=== PATIENT | male | born 1945 | race Caucasian/White ===

== ENCOUNTER → 2020-10-07 15:21 | Outpatient (BNVA) | payer MEDICARE, SELFPAY | PROVIDERS: Visit Provider Urology | DX: Z76.89 Persons encountering health services in other specified circumstances (principal) | CPT/HCPCS: Q3014 ==

== ENCOUNTER → 2021-02-14 08:45 | Outpatient (BNVA) | payer MEDICARE, SELFPAY | PROVIDERS: PCP Family Medicine; Visit Provider Urology | DX: C61 Malignant neoplasm of prostate (principal) | CPT/HCPCS: Q3014 ==

== ENCOUNTER → 2021-08-18 09:02 | Outpatient (BNVA) | payer MEDICARE, SELFPAY | PROVIDERS: PCP Family Medicine; Visit Provider Urology | DX: C61 Malignant neoplasm of prostate (principal) | CPT/HCPCS: Q3014 ==

== ENCOUNTER → 2022-03-20 11:05 | Outpatient (BNVA) | payer MEDICARE, SELFPAY | PROVIDERS: PCP Family Medicine; Visit Provider Urology | DX: C61 Malignant neoplasm of prostate (principal) | CPT/HCPCS: 99212 ==

== ENCOUNTER → 2022-09-19 10:58 | Outpatient (BNVA) | payer MEDICARE, SELFPAY | PROVIDERS: PCP Family Medicine; Visit Provider Urology | DX: C61 Malignant neoplasm of prostate (principal); N30.40 Irradiation cystitis without hematuria; N40.1 Benign prostatic hyperplasia with lower urinary tract symptoms; R33.8 Other retention of urine | CPT/HCPCS: 99212 ==

== ENCOUNTER → 2023-04-23 08:27 | Outpatient (BNVA) | payer MEDICARE, SELFPAY | PROVIDERS: PCP Family Medicine; Visit Provider Urology | DX: R97.21 Rising PSA following treatment for malignant neoplasm of prostate (principal); C61 Malignant neoplasm of prostate | CPT/HCPCS: Q3014 ==

== ENCOUNTER 2023-07-12 14:22 | Outpatient (AMB) | payer MEDICARE, SELFPAY ==
--- NOTE | 2023-07-12 14:23 | MHC.OFFVIS ---
Intake Intake Visit Reasons: PET CT ([facility] 06/21) follow up Intake Note: Patient is present for Telephone pet ct Follow up Urology Med: Finasteride, Antibiotic Allergy: None Blood Thinner: none Pharmacy: [facility] Allergies typhoid vaccine Allergy (Unknown, Verified 04/23/23 08:30) Unknown Medication List - Last Reconciled 07/12/23 by Demetrius Thomas MD amlodipine 2.5 mg PO DAILY amlodipine 5 mg PO DAILY finasteride 5 mg PO DAILY 90 days fluticasone furoate-vilanterol 100-25 mcg/dose (Breo Ellipta) 1 ea inhalation DAILY metoprolol succinate ER 100 mg PO DAILY rosuvastatin 20 mg PO DAILY umeclidinium-vilanterol 62.5-25 mcg/actuation (Anoro Ellipta) 1 ea inhalation DAILY HPI HPI Comments History of Present Illness Details Sabas is a very pleasant male. He is a patient of Dr. Small. Here for the following urologic conditions - prostate cancer - radiation cystitis Telemedicine Evaluation 15 min Consultation [employer] Stephan Video attempted PSA slow rise PET-CT - mild enhancement of right prostate apex Discussed results Continue to follow May be candidate for targeted seed placement if PSA continues to rise Had been on finasteride since 2016 with adequate control PSA 05/10 2.3, 11/09 1.4, 05/11 1.0, 02/12 <0.1, 08/15 <0.1, 03/16 <0.1, 09/15 0.2, 03/17 0.7 - slight rise in PSA in 2016 managed with finasteride Prostate cancer: Favorable intermediate. Initial treatment radiation with short-term hormones 2014 Doing well. Good control urination. No leakage. Minimal urge. - Weak erections. Prostate cancer was diagnosed 10/2014. Diagnosis was reached by needle biopsy, for elevated PSA, PSA at diagnosis 7.7. The [place] grade is 3+4 = 7. TNM Classification of Malignant Tumours (TNM) T1c. The D'Renu (NCCN) risk category is Intermediate Risk (PSA 10-20, Gl 7, T2). Initial therapy included Primary treatment, External beam radiation with short term hormonal ablation - Dr Sanchez at [facility] Associated conditions erectile dysfunction Yes Erectile ALICJA Score 16 Therapeutic plan: PET-CT for rising PSA [facility] Medical History Coronary artery disease GERD (gastroesophageal reflux disease) Gout HTN (hypertension) Hyperlipidemia Surgical History History of coronary artery stent placement Family History Father Diabetes CVD (cardiovascular disease) Prostate cancer Mother Diabetes Cancer CVD (cardiovascular disease) Review of Systems Const All systems reviewed & are unremarkable except as noted in HPI and below Reports no additional complaints Resp Reports no additional complaints GI Reports no additional complaints Reports as per HPI Musc Reports no additional complaints Physical Exam Telemedicine evaluation Appropriate responses Regular breathing rate and rhythm HEENT Head: Yes normal to inspection Ears: hearing grossly normal bilaterally Eyes General: appearance normal, both eyes and all related structures Neck Neck: Yes normal visual inspection Chest Chest palpation & inspection: normal inspection of the chest Resp Effort & Inspection: normal respiratory effort and able to speak in complete sentences Assessment & Plan Assessment & Plan (1) Prostate cancer: Comment: Favorable intermediate external beam radiation 2014 Code(s): C61 - Malignant neoplasm of prostate (2) Rising PSA following treatment for malignant neoplasm of prostate: Code(s): R97.21 - Rising PSA following treatment for malignant neoplasm of prostate Plan Three month follow-up with PSA Orders: Orders Prostate Specific Antigen 3 Months C61 - Malignant neoplasm of prostate Patient Instructions: Imaging studies, laboratory and physical exam results were discussed and reviewed in detail. No major barriers to patient understanding were identified. An opportunity to ask questions regarding the treatment plan was provided. All questions were answered. The patient expressed understanding and agreement with the above treatment plan. The patient is aware they should contact our office by phone for worsening of their current condition or the appearance of new urologic symptoms. Compliance is encouraged with any medications and followup testing that is ordered. It is a privilege to participate in the urologic care of your patient. If you have any questions or concerns regarding treatment for the above conditions, or other urologic issues, please do not hesitate to contact me. The office telephone contact is [phone]. This note is constructed using voice recognition software. While every effort has been made to ensure accuracy beer still runner compounder errors may have been included. Yours sincerely, Dr Demetrius Thomas MD, [facility] - Urology Providers of Expert, Compassionate Care for the Genitourinary System Telehealth Telehealth Location of provider rendering services: practice address Location of patient: address on file Patient Identification confirmed using: Name, : Yes Telehealth method: video Patient verbally consented to treatment: Yes Patient verbally consented to billing insurance company: Yes Patient informed of any privacy concerns related to visit: Yes Coding Level of Care Code Tele Est Pt Level 3 (61297) Diagnoses Prostate cancer C61 Rising PSA following treatment for malignant neoplasm of prostate R97.21
== END 2023-07-12 16:29 | disposition home or self-care (01) ==
LOC: HO.HUSH 14:22
PROVIDERS: PCP Family Medicine; Visit Provider Urology
DX: C61 Malignant neoplasm of prostate (principal); R97.21 Rising PSA following treatment for malignant neoplasm of prostate
CPT/HCPCS: 99213

== ENCOUNTER 2023-10-16 10:59 | Outpatient (REF) | payer MEDICARE, SELFPAY ==
[2023-10-16 12:44] LABS: Blood Urea Nitrogen 13 mg/dL (9-16); Estimated Glomerular Filt Rate > 60
[2023-10-16 13:01] LABS: Prostate Specific Antigen 5.95 ng/mL (<0.05-4.0)
== END 2023-10-16 11:00 | disposition home or self-care (01) ==
LOC: HO.LAB 10:59
PROVIDERS: PCP Family Medicine; Visit Provider Urology
DX: Z12.5 Encounter for screening for malignant neoplasm of prostate (principal); C61 Malignant neoplasm of prostate
CPT/HCPCS: 36415; 82565; 84153; 84520

== ENCOUNTER 2023-10-22 15:24 | Outpatient (AMB) | payer MEDICARE, SELFPAY ==
--- NOTE | 2023-10-22 15:26 | MHC.OFFVIS ---
Intake Intake Visit Reasons: 3M PSA(set) Allergies typhoid vaccine Allergy (Unknown, Verified 04/23/23 08:30) Unknown HPI HPI Comments History of Present Illness Details Sabas is a very pleasant male. He is a patient of Dr. Small. Here for the following urologic conditions - prostate cancer - radiation cystitis Telemedicine Evaluation 15 min Consultation [employer] Stephan Video attempted PSA slow rise Discussed results Continue to follow May be candidate for targeted seed placement or cryotherapy if PSA continues to rise Had been on finasteride since 2016 with adequate control PSA 05/10 2.3, 11/09 1.4, 05/11 1.0, 02/12 <0.1, 08/15 <0.1, 03/16 <0.1, 09/15 0.2, 04/16 0.7, 10/17 6.0 - slight rise in PSA in 2016 managed with finasteride Prostate cancer: Favorable intermediate. Initial treatment radiation with short-term hormones 07/17 PET-CT - mild enhancement of right prostate apical apex Doing well. Good control urination. No leakage. Minimal urge. - Weak erections. Prostate cancer was diagnosed 10/2014. Diagnosis was reached by needle biopsy, for elevated PSA, PSA at diagnosis 7.7. The [place] grade is 3+4 = 7. TNM Classification of Malignant Tumours (TNM) T1c. The D'Renu (NCCN) risk category is Intermediate Risk (PSA 10-20, Gl 7, T2). Initial therapy included Primary treatment, External beam radiation with short term hormonal ablation - Dr Sanchez at [facility] Associated conditions erectile dysfunction Yes Erectile ALICJA Score 16 Therapeutic plan: 4m f/u [facility] Medical History Coronary artery disease GERD (gastroesophageal reflux disease) Gout HTN (hypertension) Hyperlipidemia Surgical History History of coronary artery stent placement Family History Father Diabetes CVD (cardiovascular disease) Prostate cancer Mother Diabetes Cancer CVD (cardiovascular disease) Review of Systems Const All systems reviewed & are unremarkable except as noted in HPI and below Reports no additional complaints Resp Reports no additional complaints GI Reports no additional complaints Reports as per HPI Musc Reports no additional complaints Physical Exam Telemedicine evaluation Appropriate responses Regular breathing rate and rhythm HEENT Head: Yes normal to inspection Ears: hearing grossly normal bilaterally Eyes General: appearance normal, both eyes and all related structures Neck Neck: Yes normal visual inspection Chest Chest palpation & inspection: normal inspection of the chest Resp Effort & Inspection: normal respiratory effort and able to speak in complete sentences Assessment & Plan Assessment & Plan (1) Prostate cancer: Comment: Favorable intermediate external beam radiation 2014 Code(s): C61 - Malignant neoplasm of prostate (2) Rising PSA following treatment for malignant neoplasm of prostate: Code(s): R97.21 - Rising PSA following treatment for malignant neoplasm of prostate Plan Plan for GnRH Patient Instructions: Imaging studies, laboratory and physical exam results were discussed and reviewed in detail. No major barriers to patient understanding were identified. An opportunity to ask questions regarding the treatment plan was provided. All questions were answered. The patient expressed understanding and agreement with the above treatment plan. The patient is aware they should contact our office by phone for worsening of their current condition or the appearance of new urologic symptoms. Compliance is encouraged with any medications and followup testing that is ordered. It is a privilege to participate in the urologic care of your patient. If you have any questions or concerns regarding treatment for the above conditions, or other urologic issues, please do not hesitate to contact me. The office telephone contact is [phone]. This note is constructed using voice recognition software. While every effort has been made to ensure accuracy cement storage worker errors may have been included. Yours sincerely, Dr Demetrius Thomas MD, [facility] - Urology Providers of Expert, Compassionate Care for the Genitourinary System Telehealth Telehealth Location of provider rendering services: practice address Location of patient: address on file Patient Identification confirmed using: Name, : Yes Telehealth method: video Patient verbally consented to treatment: Yes Patient verbally consented to billing insurance company: Yes Patient informed of any privacy concerns related to visit: Yes Coding Level of Care Code Tele Est Pt Level 4 (80514) Diagnoses Prostate cancer C61 Rising PSA following treatment for malignant neoplasm of prostate R97.21
== END 2023-10-22 16:30 | disposition home or self-care (01) ==
LOC: HO.HUSH 15:24
PROVIDERS: PCP Family Medicine; Visit Provider Urology
DX: C61 Malignant neoplasm of prostate (principal); R97.21 Rising PSA following treatment for malignant neoplasm of prostate
CPT/HCPCS: 99214

== ENCOUNTER → 2023-10-22 15:24 | Outpatient (BNVA) | payer MEDICARE, SELFPAY | PROVIDERS: PCP Family Medicine; Visit Provider Urology ==

== ENCOUNTER 2023-11-08 08:53 | Outpatient (AMB) | payer MEDICARE, SELFPAY ==
--- NOTE | 2023-11-08 08:59 | AM.OFFVISNUR ---
Intake Intake Visit Reasons: GnRH(PA Set) Allergies typhoid vaccine Allergy (Unknown, Verified 04/23/23 08:30) Unknown Office Meds Eligard (6 month) 45 mg (6 month) subcutaneous syringe Performing Provider: Demetrius Thomas MD Performing Location[facility] [place] [facility] Administered by: Ekaterina Mcgowan RN on 11/08/23 08:59 Dose Route Admin Location Dispensed Lot Number Expiration Date [facility] Bank Operations Officer 45 mg subcut left arm 45 mg [id number] 11/25/24 71098-201-34 [place]. Coding Assessment & Plan Assessment & Plan Orders: Orders AMB Leuprolide Injection - Practice Supplied Today C61 - Malignant neoplasm of prostate
== END 2023-11-08 09:10 | disposition home or self-care (01) ==
PROVIDERS: PCP Family Medicine; Visit Provider Urology
DX: C61 Malignant neoplasm of prostate (principal)

== ENCOUNTER → 2023-11-08 08:53 | Outpatient (BNVA) | payer MEDICARE, SELFPAY | PROVIDERS: PCP Family Medicine; Visit Provider Urology | DX: C61 Malignant neoplasm of prostate (principal) | CPT/HCPCS: 96402; J9217 ==

== ENCOUNTER 2024-01-30 09:52 | Outpatient (AMB) | payer MEDICARE, SELFPAY ==
--- NOTE | 2024-01-30 10:12 | MHC.OFFVIS ---
Intake Intake Visit Reasons: psa/testosterone(set)VM to confirm Intake Note: Patient presents today for a follow-up on labs Meds- Finasteride Allergies to Antibiotic- No Known Allergies Blood Thinner- None Skid Road Worker Required: No Accompanied by: Allergies typhoid vaccine Allergy (Unknown, Verified 01/30/24 10:18) Unknown HPI HPI Comments History of Present Illness Details Sabas is a very pleasant male. He is a patient of Dr. Small. Here for the following urologic conditions - prostate cancer - biochemical recurrence - radiation cystitis Good response to GnRH PSA fallen 01/18 0.5 Will continue for total of 3 shots Discussed potential for targeted cryotherapy Would rely on prostate MRI GnRH 11/08/23 PSA 05/10 2.3, 11/09 1.4, 05/11 1.0, 02/12 <0.1, 08/15 <0.1, 03/16 <0.1, 09/15 0.2, 04/16 0.7, 10/17 6.0 Prostate cancer: Favorable intermediate. Initial treatment radiation with short-term hormones 07/17 PET-CT - mild enhancement of right prostate apical apex Doing well. Good control urination. No leakage. Minimal urge. - Weak erections. Prostate cancer was diagnosed 10/2014. Diagnosis was reached by needle biopsy, for elevated PSA, PSA at diagnosis 7.7. The [place] grade is 3+4 = 7. TNM Classification of Malignant Tumours (TNM) T1c. The D'Rneu (NCCN) risk category is Intermediate Risk (PSA 10-20, Gl 7, T2). Initial therapy included Primary treatment, External beam radiation with short term hormonal ablation - Dr Sanchez at [facility] Associated conditions erectile dysfunction Yes Erectile ALICJA Score 16 PFSH Medical History Gout HTN (hypertension) Hyperlipidemia GERD (gastroesophageal reflux disease) Coronary artery disease Surgical History History of coronary artery stent placement Family History Father Diabetes CVD (cardiovascular disease) Prostate cancer Mother Diabetes Cancer CVD (cardiovascular disease) Assessment & Plan Assessment & Plan (1) Prostate cancer: Comment: Favorable intermediate external beam radiation 2014 Code(s): C61 - Malignant neoplasm of prostate (2) Rising PSA following treatment for malignant neoplasm of prostate: Code(s): R97.21 - Rising PSA following treatment for malignant neoplasm of prostate Plan Three-month follow-up labs and GnRH Orders: Orders Prostate Specific Antigen 3 Months R97.21 - Rising PSA following treatment for malignant neoplasm of prostate Patient Instructions: Imaging studies, laboratory and physical exam results were discussed and reviewed in detail. No major barriers to patient understanding were identified. An opportunity to ask questions regarding the treatment plan was provided. All questions were answered. The patient expressed understanding and agreement with the above treatment plan. The patient is aware they should contact our office by phone for worsening of their current condition or the appearance of new urologic symptoms. Compliance is encouraged with any medications and followup testing that is ordered. It is a privilege to participate in the urologic care of your patient. If you have any questions or concerns regarding treatment for the above conditions, or other urologic issues, please do not hesitate to contact me. The office telephone contact is [phone]. This note is constructed using voice recognition software. While every effort has been made to ensure accuracy tool procurement coordinator errors may have been included. Yours sincerely, Dr Demetrius Thomas MD, [facility] - Urology Providers of Expert, Compassionate Care for the Genitourinary System Coding Level of Care Code Est Pt Level 3 (44080) Diagnoses Prostate cancer C61 Rising PSA following treatment for malignant neoplasm of prostate R97.21
== END 2024-01-30 11:12 | disposition home or self-care (01) ==
PROVIDERS: PCP Family Medicine; Visit Provider Urology
DX: C61 Malignant neoplasm of prostate (principal); R97.21 Rising PSA following treatment for malignant neoplasm of prostate
CPT/HCPCS: 99213

== ENCOUNTER → 2024-01-30 09:52 | Outpatient (BNVA) | payer MEDICARE, SELFPAY | PROVIDERS: PCP Family Medicine; Visit Provider Urology | DX: C61 Malignant neoplasm of prostate (principal); R97.21 Rising PSA following treatment for malignant neoplasm of prostate | CPT/HCPCS: 99212 ==

== ENCOUNTER 2024-05-26 09:11 | Outpatient (AMB) | payer MEDICARE, SELFPAY ==
--- NOTE | 2024-05-26 09:45 | A.OFFVIS_ITS ---
Intake Visit Reasons: GnRH/PSA/Testo(set) Intake Note: Patient is present for [facility]/PSA/Testo Urology Medication:finasteride Antibiotic Allergy:none Blood Thinner:none Political Scientist Required: No Allergies typhoid vaccine Allergy (Unknown, Verified 05/26/24 09:47) Unknown HPI Comments Details: Sabas is a very pleasant male. He is a patient of Dr. Small. Here for the following urologic conditions - prostate cancer - biochemical recurrence - radiation cystitis PSA stable Continue GnRH for total of 3 injections 05/18 0.9 GnRH 11/08/23, 06/17 PSA 05/10 2.3, 11/09 1.4, 05/11 1.0, 02/12 <0.1, 08/15 <0.1, 03/16 <0.1, 09/15 0.2, 04/16 0.7, 10/17 6.0 Prostate cancer: Favorable intermediate. Initial treatment radiation with short-term hormones 07/17 PET-CT - mild enhancement of right prostate apical apex Doing well. Good control urination. No leakage. Minimal urge. - Weak erections. Prostate cancer was diagnosed 10/2014. Diagnosis was reached by needle biopsy, for elevated PSA, PSA at diagnosis 7.7. The [place] grade is 3+4 = 7. TNM Classification of Malignant Tumours (TNM) T1c. The D'Renu (NCCN) risk category is Intermediate Risk (PSA 10-20, Gl 7, T2). Initial therapy included Primary treatment, External beam radiation with short term hormonal ablation - Dr Sanchez at [facility] Associated conditions erectile dysfunction Yes Erectile ALICJA Score 16 PFSH Medical History Gout HTN (hypertension) Hyperlipidemia GERD (gastroesophageal reflux disease) Coronary artery disease Surgical History History of coronary artery stent placement Family History Father Diabetes CVD (cardiovascular disease) Prostate cancer Mother Diabetes Cancer CVD (cardiovascular disease) Review of Systems Const Denies chills and Denies fever(s) Card Reports no additional complaints and Denies syncope Resp Denies cough GI Denies abdominal pain and Denies heartburn Reports as per HPI and Denies change in libido Neuro Denies syncope Psych Denies change in libido Endo Denies change in libido Physical Exam Const General: cooperative, healthy appearing, comfortable and no acute distress Orientation/consciousness: patient oriented x3 HEENT Face and sinus: Yes normal facial exam Mouth: moist mucous membranes Neck Neck: Yes normal visual inspection, Yes full ROM and Yes trachea midline Chest Chest palpation & inspection: normal inspection of the chest Resp Effort & Inspection: normal respiratory effort, able to speak in complete sentences and no respiratory distress GI Inspection: Yes normal to inspection Back/Spine/Pelvis Cervical Spine: normal cervical lordosis Thoracic/Lumbar Spine: thoracic and lumbar spine normal to inspection Skin General skin exam: no rashes or lesions noted Neuro General: patient oriented x3, gait normal, tone normal and moves all extremities Extrem General: Yes normal to inspection and Yes capillary refill normal Office Meds Eligard (6 month) 45 mg (6 month) subcutaneous syringe Performing Provider: Demetrius Thomas MD [place] [facility] [place] [facility] Administered by: Lam Smith LPN on 05/26/24 10:34 Dose Route Admin Location Dispensed Lot Number Expiration Date [facility] [employer] Feed Mixer 45 mg subcut right arm 45 mg [id number] 05/25/25 51732-023-95 [employer]. Assessment & Plan Assessment & Plan (1) Prostate cancer: Comment: Favorable intermediate external beam radiation 2014 Code(s): C61 - Malignant neoplasm of prostate Category: Medical Plan Three-month follow-up lab work Orders: Orders Prostate Specific Antigen 3 Months R97.21 - Rising PSA following treatment for malignant neoplasm of prostate Testosterone, Total 3 Months R97.21 - Rising PSA following treatment for malignant neoplasm of prostate AMB Leuprolide Injection - Practice Supplied 05/26/24 C61 - Malignant neoplasm of prostate, R97.21 - Rising PSA following treatment for malignant neoplasm of prostate Patient Instructions: Imaging studies, laboratory and physical exam results were discussed and reviewed in detail. No major barriers to patient understanding were identified. An opportunity to ask questions regarding the treatment plan was provided. All questions were answered. The patient expressed understanding and agreement with the above treatment plan. The patient is aware they should contact our office by phone for worsening of their current condition or the appearance of new urologic symptoms. Compliance is encouraged with any medications and followup testing that is ordered. It is a privilege to participate in the urologic care of your patient. If you have any questions or concerns regarding treatment for the above conditions, or other urologic issues, please do not hesitate to contact me. The office telephone contact is [phone]. This note is constructed using voice recognition software. While every effort has been made to ensure accuracy sales department supervisor errors may have been included. Yours sincerely, Dr Demetrius Thomas MD, [facility] - Urology Providers of Expert, Compassionate Care for the Genitourinary System Coding Level of Care Code Est Pt Level 3 (61572) Diagnoses Prostate cancer C61
== END 2024-05-26 10:34 | disposition home or self-care (01) ==
PROVIDERS: PCP Family Medicine; Visit Provider Urology
DX: C61 Malignant neoplasm of prostate (principal)
CPT/HCPCS: 99499

== ENCOUNTER → 2024-05-26 09:11 | Outpatient (BNVA) | payer MEDICARE, SELFPAY | PROVIDERS: PCP Family Medicine; Visit Provider Urology | DX: C61 Malignant neoplasm of prostate (principal); N52.9 Male erectile dysfunction, unspecified; R97.21 Rising PSA following treatment for malignant neoplasm of prostate | CPT/HCPCS: 96402; J9217 ==

== ENCOUNTER 2024-08-21 10:53 | Outpatient (REF) | payer MEDICARE, SELFPAY ==
[2024-08-21 12:11] LABS: PSA,Total (Free>4and<10) 0.18 ng/mL (0.00-4.00); Prostate Specific Antigen 0.17 ng/mL (<0.05-4.0)
[2024-08-27 17:14] LABS: Testosterone, Free 0.4 pg/mL (30.0-135.0); Testosterone, Total 4 ng/dL (250-1100)
== END 2024-08-21 10:54 | disposition home or self-care (01) ==
LOC: HO.LAB 10:53
PROVIDERS: PCP Family Medicine; Visit Provider Urology
DX: C61 Malignant neoplasm of prostate (principal); R97.21 Rising PSA following treatment for malignant neoplasm of prostate; Z12.5 Encounter for screening for malignant neoplasm of prostate
CPT/HCPCS: 36415; 84153; 84402; 84403

== ENCOUNTER 2024-08-27 09:05 | Outpatient (AMB) | payer MEDICARE, SELFPAY ==
--- NOTE | 2024-08-27 09:02 | A.OFFVIS_ITS ---
Intake Visit Reasons: 3M PSA/Testo (Testo Pending) Intake Note: Patient is present for 3M F/U PSA/Testo Urology Medication:NONE Antibiotic Allergy:none Blood Thinner:none Medical Insurance Verifier Required: No Allergies typhoid vaccine Allergy (Unknown, Verified 08/27/24 09:03) Unknown HPI Comments Details: Sabas is a very pleasant male. He is a patient of Dr. Small. Here for the following urologic conditions - prostate cancer - biochemical recurrence - radiation cystitis Telemedicine Evaluation 15 min Consultation Dox[employer] Stephan Video PSA is well controlled Minimal issues with urination No hot flashes Has 1 more GnRH to complete sequence of 18 months of suppression. 09/17 0.2 05/18 0.9 GnRH 11/08/23, 06/17 PSA 05/10 2.3, 11/09 1.4, 05/11 1.0, 02/12 <0.1, 08/15 <0.1, 03/16 <0.1, 09/15 0.2, 04/16 0.7, 10/17 6.0 Prostate cancer: Favorable intermediate. Initial treatment radiation with short-term hormones 07/17 PET-CT - mild enhancement of right prostate apical apex Doing well. Good control urination. No leakage. Minimal urge. - Weak erections. Prostate cancer was diagnosed 10/2014. Diagnosis was reached by needle biopsy, for elevated PSA, PSA at diagnosis 7.7. The Kurt grade is 3+4 = 7. TNM Classification of Malignant Tumours (TNM) T1c. The D'Renu (NCCN) risk category is Intermediate Risk (PSA 10-20, Gl 7, T2). Initial therapy included Primary treatment, External beam radiation with short term hormonal ablation - Dr Sanchez at [facility] Associated conditions erectile dysfunction Yes Erectile ALICJA Score 16 PFSH Medical History Gout HTN (hypertension) Hyperlipidemia GERD (gastroesophageal reflux disease) Coronary artery disease Surgical History History of coronary artery stent placement Family History Father Diabetes CVD (cardiovascular disease) Prostate cancer Mother Diabetes Cancer CVD (cardiovascular disease) Review of Systems Const All systems reviewed & are unremarkable except as noted in HPI and below Denies chills and Denies fever(s) Card Reports no additional complaints and Denies syncope Resp Denies cough GI Denies abdominal pain and Denies heartburn Reports as per HPI and Denies change in libido Musc Reports no additional complaints Neuro Denies syncope Psych Denies change in libido Endo Denies change in libido Physical Exam Telemedicine evaluation Appropriate responses Regular breathing rate and rhythm Const General: cooperative, healthy appearing, comfortable and no acute distress Orientation/consciousness: patient oriented x3 HEENT Head: Yes normal to inspection Ears: hearing grossly normal bilaterally Face and sinus: Yes normal facial exam Mouth: moist mucous membranes Eyes General: appearance normal, both eyes and all related structures Neck Neck: Yes normal visual inspection, Yes full ROM and Yes trachea midline Chest Chest palpation & inspection: normal inspection of the chest Resp Effort & Inspection: normal respiratory effort, able to speak in complete sentences and no respiratory distress GI Inspection: Yes normal to inspection Back/Spine/Pelvis Cervical Spine: normal cervical lordosis Thoracic/Lumbar Spine: thoracic and lumbar spine normal to inspection Skin General skin exam: no rashes or lesions noted Neuro General: patient oriented x3, gait normal, tone normal and moves all extremities Extrem General: Yes normal to inspection and Yes capillary refill normal Telehealth Telehealth Location of provider rendering services: practice address Location of patient: address on file Patient Identification confirmed using: Name, : Yes Telehealth method: voice only Patient verbally consented to treatment: Yes Patient verbally consented to billing insurance company: Yes Patient informed of any privacy concerns related to visit: Yes Assessment & Plan Assessment & Plan (1) Prostate cancer: Comment: Favorable intermediate external beam radiation 2014 Code(s): C61 - Malignant neoplasm of prostate Category: Medical (2) Rising PSA following treatment for malignant neoplasm of prostate: Code(s): R97.21 - Rising PSA following treatment for malignant neoplasm of prostate Category: Medical Plan Three-month follow-up GnRH and labs Orders: Orders Prostate Specific Antigen 3 Months C61 - Malignant neoplasm of prostate Testosterone, Total 3 Months C61 - Malignant neoplasm of prostate Medications: New finasteride 5 mg PO DAILY 90 days 90 tabs 1RF N13.8 - Other obstructive and reflux uropathy, N40.1 - Benign prostatic hyperplasia with lower urinary tract symptoms Patient Instructions: Imaging studies, laboratory and physical exam results were discussed and reviewed in detail. No major barriers to patient understanding were identified. An opportunity to ask questions regarding the treatment plan was provided. All questions were answered. The patient expressed understanding and agreement with the above treatment plan. The patient is aware they should contact our office by phone for worsening of their current condition or the appearance of new urologic symptoms. Compliance is encouraged with any medications and followup testing that is ordered. It is a privilege to participate in the urologic care of your patient. If you have any questions or concerns regarding treatment for the above conditions, or other urologic issues, please do not hesitate to contact me. The office telephone contact is [phone]. This note is constructed using voice recognition software. While every effort has been made to ensure accuracy bench worker binding errors may have been included. Yours sincerely, Dr Demetrius Thomas MD, [facility] - Urology Providers of Expert, Compassionate Care for the Genitourinary System Coding Level of Care Code Tele Est Pt Level 3 (97220) Diagnoses Prostate cancer C61 Rising PSA following treatment for malignant neoplasm of prostate R97.21
== END 2024-08-27 09:29 | disposition home or self-care (01) ==
LOC: HO.HUSH 09:05
PROVIDERS: PCP Family Medicine; Visit Provider Urology
DX: C61 Malignant neoplasm of prostate (principal); R97.21 Rising PSA following treatment for malignant neoplasm of prostate
CPT/HCPCS: 99442

== ENCOUNTER → 2024-08-27 09:05 | Outpatient (BNVA) | payer MEDICARE, SELFPAY | PROVIDERS: PCP Family Medicine; Visit Provider Urology ==

== ENCOUNTER 2024-11-23 10:05 | Outpatient (REF) | payer MEDICARE, SELFPAY ==
[2024-11-23 11:24] LABS: PSA,Total (Free>4and<10) < 0.10 ng/mL (0.00-4.00)
[2024-11-28 15:23] LABS: Testosterone, Total 7 ng/dL (250-1100)
== END 2024-11-23 10:06 | disposition home or self-care (01) ==
LOC: HO.LAB 10:05
PROVIDERS: PCP Family Medicine; Visit Provider Urology
DX: C61 Malignant neoplasm of prostate (principal); Z12.5 Encounter for screening for malignant neoplasm of prostate
CPT/HCPCS: 36415; 84153; 84403

== ENCOUNTER 2024-12-03 11:01 | Outpatient (AMB) | payer MEDICARE, SELFPAY ==
--- NOTE | 2024-12-03 11:37 | MHC.OFFVIS ---
Intake Visit Reasons: 3M-GnRH/Labs(pending) Intake Note: Patient is present for 3M GNRH/LABS Urology Medication:FINASTERIDE Antibiotic Allergy:NONE Blood Thinner:NONE Bell Spinner Sousaphones Required: No Allergies typhoid vaccine Allergy (Unknown, Verified 12/03/24 11:39) Unknown HPI Comments Details: Sabas is a very pleasant male. He is a patient of Dr. Small. Here for the following urologic conditions - prostate cancer - biochemical recurrence - radiation cystitis PSA is well controlled Minimal issues with urination Here for final GnRH Hot flashes have been tolerable Three-month follow-up lab work 12/19 <0.1, T 7 Final GnRH 09/17 0.2 05/18 0.9 GnRH 11/08/23, 06/17 PSA 05/10 2.3, 11/09 1.4, 05/11 1.0, 02/12 <0.1, 08/15 <0.1, 03/16 <0.1, 09/15 0.2, 04/16 0.7, 10/17 6.0 Prostate cancer: Favorable intermediate. Initial treatment radiation with short-term hormones 07/17 PET-CT - mild enhancement of right prostate apical apex Doing well. Good control urination. No leakage. Minimal urge. - Weak erections. Prostate cancer was diagnosed 10/2014. Diagnosis was reached by needle biopsy, for elevated PSA, PSA at diagnosis 7.7. The Kurt grade is 3+4 = 7. TNM Classification of Malignant Tumours (TNM) T1c. The D'Renu (NCCN) risk category is Intermediate Risk (PSA 10-20, Gl 7, T2). Initial therapy included Primary treatment, External beam radiation with short term hormonal ablation - Dr Sanchez at [facility] Associated conditions erectile dysfunction Yes Erectile ALICJA Score 16 PFSH Medical History Gout HTN (hypertension) Hyperlipidemia GERD (gastroesophageal reflux disease) Coronary artery disease Surgical History History of coronary artery stent placement Family History Father Diabetes CVD (cardiovascular disease) Prostate cancer Mother Diabetes Cancer CVD (cardiovascular disease) Review of Systems Const Denies chills and Denies fever(s) Card Reports no additional complaints and Denies syncope Resp Denies cough GI Denies abdominal pain and Denies heartburn Reports as per HPI and Denies change in libido Neuro Denies syncope Psych Denies change in libido Endo Denies change in libido Physical Exam Const General: cooperative, healthy appearing, comfortable and no acute distress Orientation/consciousness: patient oriented x3 HEENT Face and sinus: Yes normal facial exam Mouth: moist mucous membranes Neck Neck: Yes normal visual inspection, Yes full ROM and Yes trachea midline Chest Chest palpation & inspection: normal inspection of the chest Resp Effort & Inspection: normal respiratory effort, able to speak in complete sentences and no respiratory distress GI Inspection: Yes normal to inspection Back/Spine/Pelvis Cervical Spine: normal cervical lordosis Thoracic/Lumbar Spine: thoracic and lumbar spine normal to inspection Skin General skin exam: no rashes or lesions noted Neuro General: patient oriented x3, gait normal, tone normal and moves all extremities Extrem General: Yes normal to inspection and Yes capillary refill normal Office Meds Eligard (6 month) 45 mg (6 month) subcutaneous syringe Performing Provider: Demetrius Thomas MD Per[facility] [place] Administered by: Lam Smith LPN on 12/03/24 11:59 Dose Route Admin Location Dispensed Lot Number Expiration Date [facility][NOTE 3] Blending Line Attendant 45 mg subcut left arm 45 mg [id number] 04/25/26 53630-733-30 [employer] Interactive. Assessment & Plan Assessment & Plan (1) Prostate cancer: Comment: Favorable intermediate external beam radiation 2014 Code(s): C61 - Malignant neoplasm of prostate Category: Medical (2) Rising PSA following treatment for malignant neoplasm of prostate: Code(s): R97.21 - Rising PSA following treatment for malignant neoplasm of prostate Category: Medical Plan Three-month follow-up Orders: Orders Testosterone, Total 3 Months R97.21 - Rising PSA following treatment for malignant neoplasm of prostate AMB Leuprolide Injection - Practice Supplied Today C61 - Malignant neoplasm of prostate, R97.21 - Rising PSA following treatment for malignant neoplasm of prostate Prostate Specific Antigen 3 Months R97.21 - Rising PSA following treatment for malignant neoplasm of prostate Patient Instructions: Imaging studies, laboratory and physical exam results were discussed and reviewed in detail. No major barriers to patient understanding were identified. An opportunity to ask questions regarding the treatment plan was provided. All questions were answered. The patient expressed understanding and agreement with the above treatment plan. The patient is aware they should contact our office by phone for worsening of their current condition or the appearance of new urologic symptoms. Compliance is encouraged with any medications and followup testing that is ordered. It is a privilege to participate in the urologic care of your patient. If you have any questions or concerns regarding treatment for the above conditions, or other urologic issues, please do not hesitate to contact me. The office telephone contact is [phone]. This note is constructed using voice recognition software. While every effort has been made to ensure accuracy furniture packer errors may have been included. Yours sincerely, Dr Demetrius Thomas MD, [facility] - Urology Providers of Expert, Compassionate Care for the Genitourinary System Coding Level of Care Code Est Pt Level 3 (78185) Diagnoses Prostate cancer C61 Rising PSA following treatment for malignant neoplasm of prostate R97.21
== END 2024-12-03 12:08 | disposition home or self-care (01) ==
PROVIDERS: PCP Family Medicine; Visit Provider Urology
DX: C61 Malignant neoplasm of prostate (principal); R97.21 Rising PSA following treatment for malignant neoplasm of prostate
CPT/HCPCS: 99213

== ENCOUNTER → 2024-12-03 11:01 | Outpatient (BNVA) | payer MEDICARE, SELFPAY | PROVIDERS: PCP Family Medicine; Visit Provider Urology | DX: C61 Malignant neoplasm of prostate (principal); R97.21 Rising PSA following treatment for malignant neoplasm of prostate | CPT/HCPCS: 96402; 99212; J9217 ==

== ENCOUNTER 2025-02-15 09:19 | Outpatient (REF) | payer MEDICARE, SELFPAY ==
[2025-02-15 11:05] LABS: Prostate Specific Antigen < 0.10 ng/mL (<0.05-4.0)
[2025-02-20 08:44] LABS: Testosterone, Total 5 ng/dL (250-1100)
== END 2025-02-15 09:20 | disposition home or self-care (01) ==
LOC: HO.10HDL 09:19
PROVIDERS: Visit Provider Urology
DX: R97.21 Rising PSA following treatment for malignant neoplasm of prostate (principal); Z12.5 Encounter for screening for malignant neoplasm of prostate
CPT/HCPCS: 36415; 84153; 84403

== ENCOUNTER 2025-03-03 08:41 | Outpatient (AMB) | payer MEDICARE, SELFPAY ==
--- NOTE | 2025-03-03 08:41 | A.OFFVIS_ITS ---
Intake Visit Reasons: 3m/labs Intake Note: Patient is present for 3M/LABS Urology Medication:FINASTERIDE Antibiotic Allergy:NONE Blood Thinner:NONE Skatesman Required: No Allergies typhoid vaccine Allergy (Unknown, Verified 03/03/25 08:42) Unknown HPI Comments Details: Sabas is a very pleasant male. He is a patient of Dr. Small. Here for the following urologic conditions - prostate cancer - biochemical recurrence - radiation cystitis Telemedicine Evaluation 15 min Consultation Doxim[employer]ar[employer] Stephan Video PSA is well controlled 3m f/u office PSA 05/18 0.9, 09/17 0.2, 12/19 <0.1, T 7 Final GnRH, 03/19 <0.1 GnRH 11/08/23, 06/17, 12/19 PSA 05/10 2.3, 11/09 1.4, 05/11 1.0, 02/12 <0.1, 08/15 <0.1, 03/16 <0.1, 09/15 0.2, 04/16 0.7, 10/17 6.0 Prostate cancer: Favorable intermediate. Initial treatment radiation with short-term hormones 2014, Intermittent GnRH 12/17,06/17, 12/19 07/17 PET-CT - mild enhancement of right prostate apical apex Doing well. Good control urination. No leakage. Minimal urge. - Weak erections. Prostate cancer was diagnosed 10/2014. Diagnosis was reached by needle biopsy, for elevated PSA, PSA at diagnosis 7.7. The Mouthcard grade is 3+4 = 7. TNM Classification of Malignant Tumours (TNM) T1c. The D'Renu (NCCN) risk category is Intermediate Risk (PSA 10-20, Gl 7, T2). Initial therapy included Primary treatment, External beam radiation with short term hormonal ablation - Dr Sanchez at [facility] Associated conditions erectile dysfunction Yes Erectile ALICJA Score 16 PFSH Medical History Gout HTN (hypertension) Hyperlipidemia GERD (gastroesophageal reflux disease) Coronary artery disease Surgical History History of coronary artery stent placement Family History Father Diabetes CVD (cardiovascular disease) Prostate cancer Mother Diabetes Cancer CVD (cardiovascular disease) Review of Systems Const All systems reviewed & are unremarkable except as noted in HPI and below Reports no additional complaints Resp Reports no additional complaints GI Reports no additional complaints Reports as per HPI Musc Reports no additional complaints Physical Exam Telemedicine evaluation Appropriate responses Regular breathing rate and rhythm HEENT Head: Yes normal to inspection Ears: hearing grossly normal bilaterally Eyes General: appearance normal, both eyes and all related structures Neck Neck: Yes normal visual inspection Chest Chest palpation & inspection: normal inspection of the chest Resp Effort & Inspection: normal respiratory effort and able to speak in complete sentences Telehealth Telehealth Location of provider rendering services: practice address Location of patient: address on file Patient Identification confirmed using: Name, : Yes Telehealth method: voice only Patient verbally consented to treatment: Yes Patient verbally consented to billing insurance company: Yes Patient informed of any privacy concerns related to visit: Yes Assessment & Plan Assessment & Plan (1) Prostate cancer: Comment: Favorable intermediate external beam radiation 2014 Code(s): C61 - Malignant neoplasm of prostate Category: Medical (2) Rising PSA following treatment for malignant neoplasm of prostate: Code(s): R97.21 - Rising PSA following treatment for malignant neoplasm of prostate Category: Medical Plan Four month follow-up PSA office Patient Instructions: This note is constructed using voice recognition software. While every effort has been made to ensure accuracy product marketing specialist errors may have been included. Imaging studies, laboratory and physical exam results were discussed and reviewed in detail. No major barriers to patient understanding were identified. An opportunity to ask questions regarding the treatment plan was provided. All questions were answered. The patient expressed understanding and agreement with the above treatment plan. The patient is aware they should contact our office by phone for worsening of their current condition or the appearance of new urologic symptoms. Compliance is encouraged with any medications and followup testing that is ordered. It is a privilege to participate in the urologic care of your patient. If you have any questions or concerns regarding treatment for the above conditions, or other urologic issues, please do not hesitate to contact me. The office telephone contact is [phone]. Sincerely, Dr Demetrius Thomas MD, [facility] - Urology Compassionate Specialist Care for the Genitourinary System Coding Level of Care Code Tele Est Pt Level 3 (00060) Complex EM visit Add On G2211 Diagnoses Prostate cancer C61 Rising PSA following treatment for malignant neoplasm of prostate R97.21
--- OUTSIDE RECORDS SUMMARY | 2025-03-03 08:58 | XMS_ITS | Clinical Summary ---
Author Organization [facility] Address [address] [place] [address] Care Team Providers Care Thread Cutter Name Role Phone Wally Small MD Primary Care Provider [phone] Allergies Active Allergy Reactions Criticality Noted Date Comments Typhus Vaccine 11/13/2019 Medications Medication Sig Dispensed Refills Start Date End Date Status amLODIPine (NORVASC) tablet 5 mg TAKE 1 TABLET DAILY. 1 02/06/2018 Active nitroglycerin (NITROSTAT) 0.[address] 1 TABLET UNDER THE TONGUE AT 1ST SIGN OF ATTACK.MAY REPEAT EVERY 5 MIN UP TO 3 TABS. 2 03/12/2018 Active rosuvastatin (CRESTOR) tablet 20 mg TAKE 1 TABLET DAILY. 1 02/06/2018 Active aspirin EC 81 MG tablet Take 1 tablet (81 mg total) by mouth daily. 0 Active metoprolol tartrate (LOPRESSOR) 100 MG tablet Take 1 tablet (100 mg total) by mouth daily. 0 Active Umeclidinium-Vilantero l (Anoro Ellipta) 62.5-25 MCG/ACT AEPB Inhale into the lungs. 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 Claustrophobia 05/08/2021 Acute bilateral low back pain without sciatica 0 05/08/2021 Weight loss 06/13/2020 Gross hematuria 06/13/2020 Tobacco use 11/13/2019 Hot flashes 07/28/2019 Coronary artery disease invo lving kaibab heart without angina pectoris 07/28/2019 Elevated PSA 12/03/2018 Anxiety 12/03/2018 Prostate cancer 03/20/2018 History of kidney stones 03/20/2018 Erectile dysfunction 03/20/2018 Family History Medical History Relation Name Comments Prostate cancer Father Heart disease Mother Relation Name Status Comments Father Mother Social History Tobacco Use Types Packs/Day Years Used Date Smoking Tobacco: Former Cigarettes 1 2012 Smokeless Tobacco: Never Alcohol Use Standard Drinks/Week Comments Yes 0 (1 standard drink = 0.6 oz pur e alcohol) 3 beers per week Sex and Gender Information Value Date Recorded Sex Assigned at Not on file Gender Identity Not on file Sexual Orientation Not on file Job Start Date Occupation Industry Not on file Not on file Not on file Last Filed Vital Signs Vital Sign Reading Time Taken Comments Blood Pressure 140/54 08/25/2024 9:34 AM EDT Pulse 66 08/25/2024 9:34 AM EDT Temperature 36.6 ??C (97.8 ??F) 08/25/2024 9:34 AM ED T Respiratory Rate - - Oxygen Saturation 98% 08/25/2024 9:34 AM EDT Inhaled Oxygen Concentration - - Weight 98.8 kg (217 lb 12.8 oz) 08/25/2024 9:34 AM EDT Height 185.4 cm (6' 1 ) 08/25/2024 9:34 AM EDT Body Mass Index 28.74 08/25/2024 9:34 AM EDT Plan of Treatment Health Maintenance Due Date Last Done Comments Hepatitis C Screening 1945 Depression Screening 1959 BMI Counseling 1965 Preventative Health Evaluation 1965 DTap / Tdap / Td (1 - Tdap) 1966 Shingrix-Zoster Vaccine (1 o f 2) 1966 Fall Risk Assessment 2012 COVID-19 Vaccine (2 - Pfizer risk series) 09/19/2021 08/29/2021 RSV Adult > 60+ Yrs or (1 - 1-dose 75+ series) 2022 Influenza Vaccine (#1) 2024 , 11/05/2017 Pneumococcal Vaccine Completed 11/05/2017, 06/20/2016 Hepatitis B Vaccines Aged Out No long er eligible based on patient's age to complete this topic RSV Ped < 20 months Aged Out No longe r eligible based on patient's age to complete this topic Care Teams Thread Cutter Relationship Specialty Start Date End Date Wally Small MD [address] [place] [address] PCP - General Family Medicine 06/29/19
--- OUTSIDE RECORDS SUMMARY | 2025-03-03 08:58 | XMS_ITS | Clinical Summary ---
Author Organization [facility] Address [address] [place] [address] Phone Care Team Providers Care Team Driver Name Role Phone Wally Small DO Primary Care Provider [phone] Allergies Active Allergy Reactions Criticality Noted Date Comments Typhoid Vaccine,Live Attenuated 12/27 Typhus Vaccine 11/13/2019 Medications amLODIPine (NORVASC) 10 mg tablet Take 1 tablet (10 mg total) by mouth 1 (one) time each day. 3 Active fluticasone-um eclidinium-erica anterol (Trelegy Ellipta) 100-62.5-25 mcg inhaler Inhale 1 puff (100 mcg total) by mouth. Active amoxicillin (AMOXIL) 500 mg capsule 4 capsules one hour befor dentist P.O. 4 Active aspirin 81 mg EC tablet Take 1 tablet (81 mg total) by mouth 1 (one) time each day. Active diindolylmetha ne/broccoli seed (HORMONE PROTECT ORAL) Take by mouth. Growth hormone support therapy pack Active rosuvastatin (CRESTOR) 20 mg tablet TAKE 1 TABLET BY MOUTH EVERY DAY 90 tablet 2 4 Active finasteride (PROSCAR) 5 mg tablet Take 1 tablet (5 mg total) by mouth 1 (one) time each day. 4 Active nitroglycerin (NITROSTAT) 0.[address] 1 tablet (0.4 mg total) under the tongue every 5 minutes as needed. 6 Active LORazepam (ATIVAN) 1 mg tablet Take 1 tablet (1 mg total) by mouth every 6 (six) hours if needed for anxiety. Max Daily Amount: 4 mg Active indomethacin SR (INDOCIN SR) 75 mg CR capsule Take 1 capsule (75 mg total) by mouth 2 (two) times a day with meals. Do not crush or chew. Active metoprolol succinate (TOPROL-XL) 100 mg 24 hr tablet TAKE 1 TABLET BY MOUTH EVERY DAY 90 tablet 1 5 Active metoprolol succinate (TOPROL-XL) 100 mg 24 hr tablet Take 1 tablet (100 mg total) by mouth 1 (one) time each day. 4 025 Discontinued Active Problems Problem Noted Date Diagnosed Date History of cigarette smoking 08/26/2024 History of kidney stones 08/26/2024 Influenza vaccine needed 08/26/2024 Need for vaccination against Streptococcus pneum oniae 08/26/2024 Dyspnea 03/15/2022 Overview (08/26/2024): Last Assessment & Plan: increase to 5 mg a day patient complains of dyspnea most likely secondary to hypertension and weight gain. No indication of congestive heart failure no indication of valve failure. Should respond to control blood pressure and increased physical activity could also be due to pulmonary problems has not had PFTs done in quite some time. It was like he had a pulmonary appointment scheduled that got canceled. If his dyspnea persists with control of his blood pressure he may need to have a set of PFTs and a pulmonary eval done Hypertension 03/15/2022 Overview (08/26/2024): IsPatient has hypertension today and Last Assessment & Plan: Patient's blood pressure is mildly elevated. Will increase amlodipine to 10 mg a day. He has been assessed of the risk of edema and overmedication if it occurs then he is to decrease to 5 mg a day. He states his blood pressures been high at other office visits which is why we are making the change in medical management Lung nodule 11/02/2021 Overview (08/26/2024): Last Assessment & Plan: Mr. Light is a 76-year-old male who is part of our lung cancer screening program here at [facility]. He had a low-dose CT scan of the chest performed in February 2021 that showed a slight increase in size of a right upper lobe nodule from 0.5 x 0.6 cm up to 0.8 x 0.6 cm. He was seen by Dr. Weinberg from thoracic surgery given this finding and options were given regarding biopsy versus follow-up CT scan. Patient opted for a 6-month follow-up CT scan which is why he presents now to follow-up on the findings. ?? His most recent chest CT scan which was performed on September 07, 2022 shows essentially similar bilateral noncalcified subcentimeter pulmonary nodules similar to prior exam with no new or worsening pulmonary nodules identified or thoracic lymphadenopathy. His chest CT scan was given a lung RADS 2 with recommendations to continue with 12-month LDCT scans of the chest with the lung cancer screening program. Referring patient back to lung cancer screening program for 12-month LDCT scans Chest pain 10/26/2021 Overview (08/26/2024): Chest pain Acute bilateral low back pain without sciatica 0 05/08/2021 Claustrophobia 05/08/2021 Gross hematuria 06/13/2020 Coronary artery disease 07/28/2019 Overview (08/26/2024): Last Assessment & Plan: History [place] coronary disease status post three-vessel bypass with good risk data modification in place. No chest pain or discomfort. Patient advised to seek emergency medical attention by calling 911 if they were to develop severe dyspnea, chest pain that did not resolve with rest or nitroglycerin, or if they were to faint Hot flashes 07/28/2019 Anxiety 12/03/2018 Elevated PSA 12/03/2018 Hyperlipidemia 06/17/2018 Overview (08/26/2024): Last Assessment & Plan: Lipid profile in July 2021 stable on medical management Impaired fasting glucose 04/16/2018 Erectile dysfunction 03/20/2018 Prostate cancer 03/20/2018 Hoarseness or changing voice 11/05/2017 Cataract 09/16/2017 Nonrheumatic aortic valve stenosis 05/08/2017 Overview (08/26/2024): Aortic stenosis, non-rheumatic Last Assessment & Plan: Patient is status post aortic valve replacement and three-vessel coronary bypass. Echocardiography shows stable valve function. Patient remains asymptomatic from an ischemic standpoint. Lipids under good medical therapy. Hypertension under good therapy with some mild peripheral edema secondary to amlodipine. Plan on no changes to medical management at this time.Patient has antibiotic coverage for endocarditis prophylaxis available GERD (gastroesophageal reflux disease) 6 Encounters Date Type Department Care Team Description 01/14/2025 Telephone Gastroenterology - [place] [address] [facility] [address] [place] [address] Yazmin Rodriguez MD SPECIAL PROCEDURE 01/04/2025 Telephone Gastroenterology - [place] [address] [facility] [address] [facility] [address] [place] [address] Yazmin Rodriguez MD INFORMATION NEEDED from Last 3 Months Immunizations Name Administration Dates Next Due Pfizer SARS-CoV-2 COVID-19, mRNA, LNP-S, preservative free 08/29/2021 Surgical History Surgery Date Site/Laterality Comments CARDIAC SURGERY PROCEDURE: HISTORICAL HEART SURGERY(ASD,VSD,VALVES) OTHER SURGICAL HISTORY PROCEDURE: TX ABLATION ARRHYTHMOGENIC FOCI/PATHWAY W/BYPASS OTHER SURGICAL HISTORY PROCEDURE: PROSTATE BIOPSY, ANY MTHD OTHER SURGICAL HISTORY PROCEDURE:insertion of cardiac stent COLONOSCOPY PROCEDURE:COLONOSCOPY OTHER SURGICAL HISTORY PROCEDURE:cataracts CORONARY ARTERY BYPASS GRAFT PROCEDURE:CORONARY ARTERY BYPASS GRAFT CORONARY STENT PLACEMENT PROCEDURE:CORONARY STENT PLACEMENT Medical History Medical History Date Comments History of cigarette smoking 10/26/2021 DX: History of cigarette smoking Prostate cancer (CMS/HCC) 2009 DX:Pro state cancer (HCC) Prostate cancer (CMS/HCC) DX:Pro state cancer (HCC) Hypertension DX:Hypertension High cholesterol DX:High cholest david Heart attack (CMS/HCC) DX:Heart attack (HCC) Aortic stenosis DX:Aortic stenos is Family History Medical History Relation Name Comments Prostate cancer Father Heart disease Mother Relation Name Status Comments Father Mother Social History Tobacco Use Types Packs/Day Years Used Date Smoking Tobacco: Former Cigarettes 1 51 0 11/25/1961 - 11/25/2013 Smokeless Tobacco: Never Alcohol Use Standard Drinks/Week Comments Yes 0 (1 standard drink = 0.6 oz pur e alcohol) Sex and Gender Information Value Date Recorded Sex Assigned at Not on file Legal Sex Male 1:22 AM EST Gender Identity Not on file Sexual Orientation Not on file Obstetrics History Last Filed Vital Signs Vital Sign Reading Time Taken Comments Blood Pressure 140/54 08/25/2024 9:34 AM EDT Sitting Right arm Pulse 66 08/25/2024 9:34 AM EDT Temperature - - Respiratory Rate - - Oxygen Saturation - - Inhaled Oxygen Concentration - - Weight 98.8 kg (217 lb 12.8 oz) 08/25/2024 9:34 AM EDT Height 185.4 cm (6' 1 ) 08/25/2024 9:34 AM EDT Body Mass Index 28.74 08/25/2024 9:34 AM EDT Plan of Treatment Upcoming Encounters Date Type Department Care Team (Late st Contact Info) Description 04/26/2025 9:00 AM EDT Office Visit [facility] Hematology Oncology [address] [place] [phone] Nemesio-Amy Carlton MD [address] [place] [id number] Health Maintenance Due Date Last Done Comments DTaP,Tdap,and Td Vaccines (1 - Tdap) 1966 Hepatitis A Vaccines (1 of 2 - Risk 2-dose series) 1966 Zoster Vaccines (1 of 2) 1966 Hepatitis B Vaccines (1 of 3 - Risk 3-dose series) 2007 Depression Screening 11/01/2022 Falls Risk Assessment 11/01/2022 Hepatitis C Screening 11/01/2022 Lung Cancer Screening (Low Dose CT) 11/01/2022 03/22/2021 Medicare Annual Wellness Visit 11/01/2022 Social Influencers of Health Screening 11/01/2022 Hypertension/CHF/CAD Annual BMP Blood Test 11/03/2022 04/14/2018, 04/13/2018, 04/12/2018, Additional history exists Cholesterol Screening (Lipid Panel) 04/11/2023 04/11/2018 Pneumococcal Vaccine: 50+ Years Completed 11/05/2017, 06/20/2016 Influenza Vaccine Completed 08/19/2024, , 09/17/2022, Additional history exists RSV Immunization Adult Patients Completed 08/19/2024 COVID-19 Vaccine Completed 10/08/2024, 10/2022, 08/29/2021, Additional history exists HIB Vaccines Aged Out No longer eligi ble based on patient's age to complete this topic HPV Vaccines Aged Out No longer eligi ble based on patient's age to complete this topic IPV Vaccines Aged Out No longer eligi ble based on patient's age to complete this topic MMR Vaccines Aged Out No longer eligi ble based on patient's age to complete this topic Meningococcal ACWY Vaccine Aged Out N o longer eligible based on patient's age to complete this topic Meningococcal B Vaccine Aged Out No l onger eligible based on patient's age to complete this topic RSV Immunization Patients Under 20 months Aged Out No longer eligible based on patient's age to complete this topic Varicella Vaccines Aged Out No longer eligible based on patient's age to complete this topic Procedures Procedure Name Priority Date/Time Associated Diagnosis Comments CT LUNG SCREENING LOW DOSE Routine 03/22/2021 10:08 AM EDT Personal history of nicotine dependence from Last 3 Months or Most Recently Relevant to Health Maintenance Results * CT LUNG SCREENING LOW DOSE (03/22/2021 10:08 AM EDT) Anatomical Region Laterality Modality Computed Tomogra phy 03/22/2021 9:02 AM EDT Narrative 03/22/2021 10:08 AM EDT [facility] Diagnostic Imaging Department [address] [place] [address] Patient: ??SABAS LIGHT ?/Age/Sex: 1945 - 75 - M Unit#: ??[id number] ? Location/Status: ??SPDICATLS/REG CLI ? Mnemonic/Ordering Site: ??CTLUNGLD/SPCT Ordering Physician: ??JHONNY WEINBERG MD CT Lung Screening Low Dose - 03/22/21909 HISTORY: Former smoker (8 years), 52 pack year total. COMMENTS: Noncontrast Chest CT examination includes axial imaging from the lung apices through the hemidiaphragms supplemented with coronal and sagittal reformatted images utilizing low-dose screening technique (Guitar Party, 170.99 DLP (mGy-cm), CT utilizing dose reduction technique with automated exposure control based on patient size or use of iterative reconstruction technique). Direct comparison to low-dose screening Chest CT examinations: 09/24/2019, 03/23/2020. Cardiac size within normal limits. Three-vessel coronary artery calcification. Aortic valve calcification. Thoracic surgical sequela includes median sternotomy wires. 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 ??Thoracic aorta atherosclerotic calcification. No gross thoracic lymphadenopathy by noncontrast CT analysis. Tracheobronchial intraluminal mucoid debris. Emphysematous disease. Mild pulmonary parenchymal scarring without focal alveolar consolidation. Nonspecific scattered bilateral noncalcified subcentimeter pulmonary nodules, overall similar when compared to prior studies. ??Stable noncalcified 3 mm right upper lobe apex nodule (series 4 image 27). ??Stable anteromedial aspect left upper lobe noncalcified 6 x 7 mm solid nodule (series 4 image 113). ??Essentially stable up to approximately 4 mm right lower lobe nodules, as seen for example on series 4 images 120 and 132. ??Stable well-defined noncalcified 4 mm left lower lobe nodule (series 4 image 156). Noncalcified right upper lobe apex peribronchovascular solid nodule measures up to approximately 5 x 6 mm (series 4 image 49) as compared to 3 x 4 mm on 08/27. No discrete new pulmonary nodule. Chronic T7 and T9 vertebral body compression deformities. IMPRESSION: Emphysematous disease and nonspecific subcentimeter pulmonary nodules by noncontrast low-dose screening CT analysis include interval increased right upper lobe apex nodule when compared to 2019 which must be considered neoplastic until proven otherwise. [id number] [id number] [id number] Lung RADS: Category 4A CT Telerad Dictating Physician: ??YODIT GOFF DO Electronically Signed by: ??YODIT GOFF DO Dic Date/Time: ??03/22/21 0953 Sign date/Time: ??03/22/21 1008 Procedure Note Yodit Goff, DO - 11/13/2022 [facility] Diagnostic Imaging Department [address] [place] [address] Patient: SABAS LIGHTO.B./Age/Sex: 1945 - 75 - M Unit#: [id number] Location/Status: [facility] Mnemonic/Ordering Site: [facility] Ordering Physician: JHONNY WEINBERG MD CT Lung Screening Low Dose - 03/22/21 - 909 HISTORY: Former smoker (8 years), 52 pack year total. COMMENTS: Noncontrast Chest CT examination includes axial imaging from the lungapices through the hemidiaphragms supplemented with coronal and sagittalreformatted images utilizing low-dose screening technique (GE, 170.99 DLP (mGy-cm),CT utilizing dose reduction technique with automated exposure control basedon patient size or use of iterative reconstruction technique). Direct comparison to low-dose screening Chest CT examinations:09/24/2019, 03/23/2020. Cardiac size within normal limits. Three-vessel coronary arterycalcification. Aortic valve calcification. Thoracic surgical sequela includes median sternotomy wires. 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 Thoracic aorta atherosclerotic calcification. No gross thoracic lymphadenopathy by noncontrast CT analysis. Tracheobronchial intraluminal mucoid debris. Emphysematous disease. Mild pulmonary parenchymal scarring without focal alveolarconsolidation. Nonspecific scattered bilateral noncalcified subcentimeter pulmonarynodules, overall similar when compared to prior studies. Stable noncalcified 3 mmright upper lobe apex nodule (series 4 image 27). Stable anteromedial aspectleft upper lobe noncalcified 6 x 7 mm solid nodule (series 4 image 113).Essentially stable up to approximately 4 mm right lower lobe nodules, as seen forexample on series 4 images 120 and 132. Stable well-defined noncalcified 4 mm leftlower lobe nodule (series 4 image 156). Noncalcified right upper lobe apex peribronchovascular solid nodulemeasures up to approximately 5 x 6 mm (series 4 image 49) as compared to 3 x 4 mm on08/27. No discrete new pulmonary nodule. Chronic T7 and T9 vertebral body compression deformities. IMPRESSION: Emphysematous disease and nonspecific subcentimeter pulmonary nodules by noncontrast low-dose screening CT analysis include interval increasedright upper lobe apex nodule when compared to 2019 which must be consideredneoplastic until proven otherwise. [id number] [id number] [id number] Lung RADS: Category 4A CT Telerad Dictating Physician: YODIT GOFF DO Electronically Signed by: YODIT GOFF DO Dic Date/Time: 03/22/21 0953 Sign date/Time: 03/22/21 1008 Jhonny Weinberg MD IM CT PROCEDURES Final Result from Last 3 Months or Most Recently Relevant to Health Maintenance Insurance [employer] Care Teams Team Driver Relationship Specialty Start Date End Date Wally Small DO [address], [place] PCP - General Family Medicine 06/29/19
--- OUTSIDE RECORDS SUMMARY | 2025-03-03 08:58 | XMS_ITS | Encounter Summary ---
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 and would be a candidate to consider oral medication down the line And continues on on surveillance and lab monitoring only Request lab work from PCP office Low back pain is concerning, MRI with contrast lumbar sacral area -- showed arthritis, also updatedin the bone scan Will also obtain CT abdomen/pelvis with contrast, and bone scan-restage imaging reviewed, no evidence of metastatic disease at this time, sternoclavicular area activity and bone scan likely arthritis, Bone scan reviewed and copy provided I advised him to bring his along for the appointments, as he has memory issues --Patient is apologizes for the 1 time that he was upset with the staff member over the phone--he had no recollection of the incident of If there is any disease progression, can consider second line therapy or resumption of androgen deprivation therapy He may benefit from androgen deprivation for the next 6 to 9 months and thereafter stopped due to his coronary artery issues Patient follows with Dr. Tilley at [place], will send my notes also If he has any PSA progression, at that point will need restaging imaging, CT / bone scans, Continue intermittent androgen deprivation strategy has no evidence of metastatic disease at this point -- Will await thoracic surgery evaluation regarding the lung nodule If he does have metastatic disease, would be a candidate for medication such as enzalutamide, or ifhigh-volume disease/lymph node involvement, would recommend chemotherapy with docetaxel at that time. #2 prior history of smoking, about [id number], quit 8 years ago Continues on CT surveillance, latest PET CT scan reviewed, this did reveal 2 lung nodules one of them with SUV of 3.4, may benefit from thoracic surgery evaluation, possibly surgical excision versus SBRT after biopsy --If this does demonstrate metastatic adenocarcinoma, also consider prostatic mets stasis #3 coronary artery disease Mild symptoms at this time, monitor during androgen deprivation therapy, patient is aware of risks #4 hyper to biliary disease, follow-up with GI, appears to have fatty liver infiltrate, possible cirrhosis Continue to monitor PSA closely for the next few months Clinic follow-up in April, and sooner if new issues arise. Patient is in agreement with this plan. Pain Control--no issues Health Care Proxy--none Amy Issa MD Cc Wally Small MD Cc Dr Demetrius jerez --urology, [place]. Cc Jhonny Murdock Cc Yonatan Carvajal documented in this encounter Plan of Treatment Upcoming Encounters Date Type Department Care Team (Late st Contact Info) Description 04/26/2025 9:00 AM EDT Office Visit [facility] Hematology Oncology [address] [place] [address] Amy Triana MD [address] [place] [phone] documented as of this encounter Procedures Procedure Name Priority Date/Time Associated Diagnosis Comments HISTORICAL IMAGING SCAN RESULT 08/25/2024 documented in this encounter Results * HISTORICAL IMAGING SCAN RESULT (08/25/2024) Anatomical Region Laterality Modality Ultrasound us Provider Onbase MD [facility]USA US PROCEDURES Final Resul t documented in this encounter Visit Diagnoses Not on filedocumented in this encounter Care Teams Building Contractor Relationship Specialty Start Date End Date Wally Small DO [address], [place] PCP - General Family Medicine 06/29/19 documented as of this encounter
== END 2025-03-03 09:44 | disposition home or self-care (01) ==
LOC: HO.HUSH 08:41
PROVIDERS: PCP Family Medicine; Visit Provider Urology
DX: C61 Malignant neoplasm of prostate (principal); R97.21 Rising PSA following treatment for malignant neoplasm of prostate
CPT/HCPCS: 98013

== ENCOUNTER → 2025-03-03 08:41 | Outpatient (BNVA) | payer MEDICARE, SELFPAY | PROVIDERS: PCP Family Medicine; Visit Provider Urology ==

== ENCOUNTER 2025-06-28 08:41 | Outpatient (REF) | payer MEDICARE, SELFPAY ==
--- OUTSIDE RECORDS SUMMARY | 2025-06-28 09:03 | XMS_ITS | Clinical Summary ---
Author Organization [facility] Address [address] [place] [address] Phone Care Team Providers Care Helper Maintenance Cleaning Name Role Phone Unavailable Primary Care Provider Unavailabl e Allergies Active Allergy Reactions Criticality Noted Date Comments Typhoid Vaccine,Live Attenuated 12/27 Typhus Vaccine 11/13/2019 Medications fluticasone-umec lidinium-vilante rol (Trelegy Ellipta) 100-62.5-25 mcg inhaler Inhale 1 puff (100 mcg total) by mouth. Active aspirin 81 mg EC tablet Take 1 tablet (81 mg total) by mouth 1 (one) time each day. Active diindolylmethane /broccoli seed (HORMONE PROTECT ORAL) Take by mouth. Growth hormone support therapy pack Active rosuvastatin (CRESTOR) 20 mg tablet TAKE 1 TABLET BY MOUTH EVERY DAY 90 tablet 2 11/09/20 24 Active finasteride (PROSCAR) 5 mg tablet Take 1 tablet (5 mg total) by mouth 1 (one) time each day. 11/22/20 24 Active nitroglycerin (NITROSTAT) 0.[address] 1 tablet (0.4 mg total) under the tongue every 5 minutes as needed. 06/19/20 16 Active LORazepam (ATIVAN) 1 mg tablet Take 1 tablet (1 mg total) by mouth every 6 (six) hours if needed for anxiety. Active indomethacin SR (INDOCIN SR) 75 mg CR capsule Take 1 capsule (75 mg total) by mouth 2 (two) times a day with meals. Do not crush or chew. Active metoprolol succinate (TOPROL-XL) 100 mg 24 hr tablet TAKE 1 TABLET BY MOUTH EVERY DAY 90 tablet 1 02/20/20 25 Active amLODIPine (NORVASC) 10 mg tabletIndication s:Essential (primary) hypertension TAKE 1 TABLET BY MOUTH EVERY DAY 90 tablet 2 05/20/20 25 Active lisinopriL (PRINIVIL,ZESTRI L) 2.5 mg tabletIndication s:Coronary artery disease, unspecified vessel or lesion type, unspecified whether angina present, unspecified whether [place] or transplanted heart Take 1 tablet (2.5 mg total) by mouth 1 (one) time each day. 30 each 11 06/17/20 25 026 Active amoxicillin (AMOXIL) 500 mg capsule 4 capsules one hour befor dentist P.O. 03/25/20 24 025 Discontinued amoxicillin (AMOXIL) 500 mg capsuleIndicatio ns:Nonrheumatic aortic valve stenosis Take 4 caps (2000 mg) 1 hour prior to procedure. 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 Garcia Ascending aorta dilatation ([facility] V24) 025 Overview (05/17/2025): 3.8 cm 09/24/19 Abdominal aortic ectasia ([facility] V24) Overview (05/17/2025): 2014 to 01/13-stable Arthralgia of shoulder 05/17/2025 Other cirrhosis of liver ([facility] V24, [facility] V 28) 04/26/2025 History of cigarette smoking 08/26/2024 History of [...] are making the change in medical management Assessment & Plan (06/17/2025 11:01 AM EDT): Blood pressure is elevated. Will add lisinopril 0.5 mg a day. He is to get a lab slip to check a potassium and renal function in a week Lung nodule 11/02/2021 Overview (08/26/2024): Last Assessment & Plan: Mr. Light is a 76-year-old male who is part of our lung cancer screening program here at [facility]. He had a low-dose CT [...] presents now to follow-up on the findings. His most recent chest CT scan which [...] Overview (08/26/2024): Last Assessment & Plan: History [place] coronary disease status post three-vessel bypass with good risk data modification in place. No chest pain or discomfort. Patient advised to seek emergency medical attention by calling 911 if they were to develop severe dyspnea, chest pain that did not resolve with rest or nitroglycerin, or if they were to faint Assessment & Plan (06/17/2025 11:01 AM EDT): Chest pain-free at this time. Ailin modification in place. Orders: ECG 12 lead lisinopriL (PRINIVIL,ZESTRIL) 2.5 mg tablet; Take 1 tablet (2.5 mg total) by mouth 1 (one) time each day. Basic metabolic panel; Future Hot flashes 07/28/2019 Anxiety 12/03/2018 Elevated PSA 12/03/2018 Hyperlipidemia 06/17/2018 Overview (08/26/2024): Last Assessment & Plan: Lipid profile in July 2021 stable on medical management Impaired fasting glucose 04/16/2018 Erectile dysfunction 03/20/2018 Prostate cancer ([facility] V24, [facility] V28) 03/20 Hoarseness or changing voice 11/05/2017 Cataract 09/16/2017 Aortic stenosis 05/08/2017 Overview (08/26/2024): Aortic stenosis, non-rheumatic [...] has antibiotic coverage for endocarditis prophylaxis available Assessment & Plan (06/17/2025 11:01 AM EDT): Patient status post aortic valve replacement stable gradient understands need for endocarditis prophylaxis for dental work. Orders: Transthoracic echocardiogram (TTE) complete with PRN contrast, bubble, strain, and 3D order panel; Future amoxicillin (AMOXIL) 500 mg capsule; Take 4 caps (2000 mg) 1 hour prior to procedure. GERD (gastroesophageal reflux disease) 6 Encounters Date Type Department Care Team Description 06/17/2025 8:20 AM EDT Office Visit [facility] [address] [place] [phone] Jose Garcia MD Coronary artery disease, unspecified vessel or lesion type, unspecified whether angina present, unspecified whether [place] or transplanted heart (Primary Dx); Nonrheumatic aortic valve stenosis; Primary hypertension 05/19/2025 10:45 AM EDT Office Visit Pulmonolgy - [place] [address] [facility] [address] [place] [address] Yonatan Gray MD Lung nodule (Primary Dx); Pulmonary emphysema, unspecified emphysema type ([facility] V24, [facility] V28); Intermittent claudication ([facility] V24); Morbid obesity due to excess calories ([facility] V24, [facility] V28) 04/26/2025 9:00 AM EDT Office Visit [facility] Hematology Oncology [address] [place] [address] Amy Triana MD Prostate cancer ([facility] V24, [facility] V28) (Primary Dx); Elevated PSA; Anxiety; Acute bilateral low back pain without sciatica; Lung nodule; Other cirrhosis of liver ([facility] V24, [facility] V28) from Last 3 Months Immunizations Name Administration Dates Next Due Pfizer SARS-CoV-2 COVID-19, mRNA, LNP-S, preservative free 08/29/2021 Surgical History Surgery Date Site/Laterality Comments CARDIAC SURGERY PROCEDURE: HISTORICAL HEART SURGERY(ASD,VSD,VALVES) OTHER SURGICAL HISTORY PROCEDURE: [place] ABLATION ARRHYTHMOGENIC FOCI/PATHWAY W/BYPASS OTHER SURGICAL HISTORY PROCEDURE: PROSTATE BIOPSY, ANY MTHD OTHER SURGICAL HISTORY PROCEDURE:insertion of cardiac stent COLONOSCOPY PROCEDURE:COLONOSCOPY OTHER SURGICAL HISTORY PROCEDURE:cataracts CORONARY ARTERY BYPASS GRAFT PROCEDURE:CORONARY ARTERY BYPASS GRAFT CORONARY STENT PLACEMENT PROCEDURE:CORONARY STENT PLACEMENT Medical History Medical History Date Comments History of cigarette smoking 10/26/2021 DX: History of cigarette smoking Prostate cancer ([facility] V24, [facility] V28) 2009 DX:Prostate cancer (HCC) Prostate cancer ([facility] V24, [facility] V28) DX:Prostate cancer (HCC) Hypertension DX:Hypertension High cholesterol DX:High cholest david Heart attack ([facility] V24, [facility] V28) DX:Heart attack (HCC) Aortic stenosis DX:Aortic stenos is Family History Medical History Relation Name Comments Prostate cancer Father Heart disease Mother Relation Name Status Comments Father Mother Social History Tobacco Use Types Packs/Day Years Used Date Smoking Tobacco: Former Cigarettes 1 52 0 11/25/1961 - 11/25/2013 Passive Smoke Exposure: Never Smokeless Tobacco: Never Alcohol Use Standard Drinks/Week Comments Not Currently 0 (1 standard drink = 0.6 oz pur e alcohol) Sex and Gender Information Value Date Recorded Sex Assigned at Not on file Legal Sex Male 1:22 AM EST Gender Identity Not on file Sexual Orientation Not on file Obstetrics History Last Filed Vital Signs Vital Sign Reading Time Taken Comments Blood Pressure 138/77 05/19/2025 10:37 AM EDT Pulse 62 06/17/2025 8:14 AM EDT Temperature 35.6 C (96 F) 05/19/2025 10:37 AM EDT Respiratory Rate 18 05/19/2025 10:37 AM EDT Oxygen Saturation 97% 06/17/2025 8:14 AM EDT Inhaled Oxygen Concentration - - Weight 95.8 kg (211 lb 1.6 oz) 06/17/2025 8:14 A M EDT Height 185.4 cm (6' 1 ) 06/17/2025 8:14 AM EDT Body Mass Index 27.85 06/17/2025 8:14 AM EDT Plan of Treatment Upcoming Encounters Date Type Department Care Team (Late st Contact Info) Description 08/19/2025 9:45 AM EDT Office Visit Pulmonolgy - [place] [address] [facility] [address] [place] [phone] Yonatan Gray MD [address] [facility] [address] [place] [address] 12/07/2025 8:00 AM EST Ancillary Procedure [facility] - [facility] [address] [facility] [place] [address] [place] [phone] 01/26/2026 9:00 AM EST Office Visit [facility] Hematology Oncology [address] [place] [phone] Nemesio-Amy Carlton MD [address] [place] [phone] Health Maintenance Due Date Last Done Comments DTaP,Tdap,and Td Vaccines (1 - Tdap) 1966 Hepatitis A Vaccines (1 of 2 - Risk 2-dose series) 1966 Zoster Vaccines (1 of 2) 1966 Hepatitis B Vaccines (1 of 3 - Risk 3-dose series) 2007 Falls Risk Assessment 11/01/2022 Hepatitis C Screening 11/01/2022 Lung Cancer Screening (Low Dose CT) 11/01/2022 03/22/2021 Medicare Annual Wellness Visit 11/01/2022 Social Influencers of Health Screening 11/01/2022 Hypertension/CHF/CAD Annual BMP Blood Test 11/03/2022 04/14/2018, 04/13/2018, 04/12/2018, Additional history exists Cholesterol Screening (Lipid Panel) 04/11/2023 04/11/2018 Depression Screening 11/25/2024 COVID-19 Vaccine (6 - Pfizer risk season) 2025 10/08/2024, 09/05/2022, 08/29/2021, Additional history exists Influenza Vaccine (#1) 2025 , 10/29/2023, 09/17/2022, Additional history exists Pneumococcal Vaccine: 50+ Years Completed 11/05/2017, 06/20/2016 RSV Immunization Adult Patients Completed 08/19/2024 HIB Vaccines Aged Out No longer eligi [...] Procedure Name Priority Date/Time Associated Diagnosis Comments ECG 12-LEAD Routine 06/17/2025 8:25 AM EDT Coronary artery disease, unspecified vessel or lesion type, unspecified whether angina present, unspecified whether [place] or transplanted heart CT LUNG SCREENING LOW DOSE Routine 03/22/2021 10:08 AM EDT Personal history of nicotine dependence from Last 3 Months or Most Recently Relevant to Health Maintenance Results * ECG 12 lead (06/17/2025 8:25 AM EDT) Ventricular Rate ECG 62 BPM GEMUSE Atrial Rate 62 BPM GEMUSE P-R Interval 292 ms GEMUSE QRS Duration 146 ms GEMUSE Q-T Interval 466 ms GEMUSE QTc 472 ms GEMUSE P Wave Stokes 46 degrees GEMUSE R Stokes -42 degrees GEMUSE T Stokes 20 degrees GEMUSE ECG Interpretation Sinus rhythm with 1st degree A-V block Left axis deviation Right bundle branch block Voltage criteria for left ventricular hypertrophy Abnormal ECG When compared with ECG of 18-SEP-2012 13:32, NV interval has increased Vent. rate has decreased BY 43 BPM Right bundle branch block is now Present Confirmed by Socorro GARCIA JAMES ([id number]) on 06/17/2025 10:38:19 AM GEMUSE 06/17/2025 8:25 AM EDT 06/17/2025 10:38 AM EDT us Jose Garcia MD ECG ORDERABLES Final Result GEMUSE * CT LUNG SCREENING LOW DOSE (03/22/2021 10:08 AM EDT) Anatomical Region Laterality Modality Computed Tomogra phy 03/22/2021 9:02 AM EDT Narrative 03/22/2021 10:08 AM EDT [facility] Diagnostic Imaging Department [address] [place] [address] Patient: SABAS LIGHT./Age/Sex: 1945 - 75 - M Unit#: [id number] Location/Status: SPDICATLS/REG CLI Mnemonic/Ordering Site: [facility] Ordering Physician: JHONNY WEINBERG MD CT Lung Screening Low Dose - 03/22/21909 HISTORY: Former smoker (8 years), 52 pack year total. COMMENTS: Noncontrast Chest CT examination includes axial imaging from the lung apices through the hemidiaphragms supplemented with coronal and sagittal reformatted images utilizing low-dose screening technique (GE, 170.99 DLP (mGy-cm), CT utilizing dose reduction [...] compared to prior studies. Stable noncalcified 3 mm right upper lobe apex nodule (series 4 image 27). Stable anteromedial aspect left upper lobe noncalcified 6 x 7 mm solid nodule (series 4 image 113). Essentially stable up to approximately 4 mm right lower lobe nodules, as seen for example on series 4 images 120 and 132. Stable well-defined noncalcified 4 mm left lower lobe [...] Date/Time: 03/22/21 0953 Sign date/Time: 03/22/21 1008 Procedure Note Yodit Goff, - 11/13/2022 [facility] Diagnostic Imaging Department [address] [place] [address] Patient: SABAS LIGHT./Age/Sex: 1945 - 75 - M Unit#: [id number] Location/Status: SPDICATLS/REG CLI Mnemonic/Ordering Site: [facility] Ordering Physician: JHONNY WEINBERG MD CT Lung Screening Low Dose - 03/22/21 - 0910 HISTORY: Former smoker (8 years), 52 pack year total. COMMENTS: Noncontrast Chest CT examination includes axial imaging from the lungapices through the hemidiaphragms supplemented with coronal and sagittalreformatted images utilizing low-dose screening technique (Txt4, 170.99 DLP (mGy-cm),CT utilizing dose reduction technique [...] as compared to 3 x 4 mm on10/3 11/2018. No discrete new pulmonary nodule. Chronic T7 [...] Sign date/Time: 03/22/21 1008 Jhonny Weinberg MD IMG CT PROCEDURES Final Result from Last 3 Months or Most Recently Relevant to Health Maintenance Insurance [employer]
--- OUTSIDE RECORDS SUMMARY | 2025-06-28 09:03 | XMS_ITS | Clinical Summary ---
Author Organization [facility] Address [address] [place] [address] Care Team Providers Care Agile Test Lead Name Role Phone Wally Small MD Primary Care Provider [phone] Allergies Active Allergy Reactions Criticality Noted Date [...] flashes 07/28/2019 Coronary artery disease invo lving [place] heart without angina pectoris 07/28/2019 Elevated PSA [...] 66 08/25/2024 9:34 AM EDT Temperature 36.6 C (97.8 F) 08/25/2024 9:34 AM EDT Respiratory Rate - - Oxygen Saturation 98% [...] 1-dose 75+ series) 2022 Influenza Vaccine (#1) 2025 , 11/05/2017 Pneumococcal Vaccine Completed 11/05/2017, 06/20/2016 Hepatitis B Vaccines Aged Out No long er eligible based on patient's age to complete this topic RSV Ped < 20 months Aged Out No longe r eligible based on patient's age to complete this topic Care Teams Agile Test Lead Relationship Specialty Start Date End Date Wally Small MD [address] [place] [address] PCP - General Family Medicine 06/29/19
[2025-06-28 11:05] LABS: Anion Gap 12 (12-20); Blood Urea Nitrogen 9 mg/dL (9-16); Calcium 9.0 mg/dL (8.4-10.2); Carbon Dioxide 27 mmol/L (22-29); Chloride 107 mmol/L (96-108); Estimated Glomerular Filt Rate > 60; Potassium 4.7 mmol/L (3.3-5.1); Sodium 141 mmol/L (135-145)
[2025-06-28 11:34] LABS: Prostate Specific Antigen < 0.10 ng/mL (<0.05-4.0)
== END 2025-06-28 08:42 | disposition home or self-care (01) ==
LOC: HO.10HDL 08:41
PROVIDERS: Urology; Visit Provider Internal Medicine Cardiovascular Disease
DX: I25.10 Atherosclerotic heart disease of native coronary artery without angina pectoris (principal); R97.21 Rising PSA following treatment for malignant neoplasm of prostate; C61 Malignant neoplasm of prostate; Z12.5 Encounter for screening for malignant neoplasm of prostate
CPT/HCPCS: 36415; 80048; 84153; 84403

== ENCOUNTER 2025-07-02 13:13 | Outpatient (AMB) | payer MEDICARE, SELFPAY ==
--- OUTSIDE RECORDS SUMMARY | 2025-07-02 13:15 | XMS_ITS | Clinical Summary ---
Author Organization [facility] Address [address] [place] [address] Care Team Providers Care Wool Carder Name Role Phone Wally Small MD Primary Care Provider [phone] Allergies Active Allergy Reactions Criticality Noted Date [...] flashes 07/28/2019 Coronary artery disease invo lving [place] heart without angina pectoris 07/28/2019 Elevated PSA [...] age to complete this topic Care Teams Wool Carder Relationship Specialty Start Date End Date Wally Small MD [address] [place] [address] PCP - General Family Medicine 06/29/19
--- OUTSIDE RECORDS SUMMARY | 2025-07-02 13:15 | XMS_ITS | Clinical Summary ---
Author Organization [facility] Address [address] [place] [address] Phone Care Team Providers Care Client Application Support Specialist Name Role Phone Unavailable Primary Care Provider [...] type, unspecified whether angina present, unspecified whether united keetoowah or transplanted heart Take 1 tablet (2.5 [...] ABX prophylaxis Dr. Garcia Ascending aorta dilatation ([facility] V24) 025 Overview (05/17/2025): 3.8 cm 09/24/19 Abdominal aortic ectasia ([facility] V24) Overview (05/17/2025): 2014 to 01/13-stable Arthralgia of shoulder 05/17/2025 Other cirrhosis of liver ([facility] V24, [facility] V 28) 04/26/2025 History of cigarette smoking [...] our lung cancer screening program here at [facility]. He had a low-dose CT scan of [...] Overview (08/26/2024): Last Assessment & Plan: History [place] coronary disease status post three-vessel bypass with [...] glucose 04/16/2018 Erectile dysfunction 03/20/2018 Prostate cancer ([facility] V24, [facility] V28) 03/20 Hoarseness or changing voice 11/05/2017 [...] Description 06/17/2025 8:20 AM EDT Office Visit [facility] [address] [place] [phone] Jose Garcia MD Coronary artery disease, unspecified vessel or lesion type, unspecified whether angina present, unspecified whether united keetoowah or transplanted heart (Primary Dx); Nonrheumatic aortic valve stenosis; Primary hypertension 05/19/2025 10:45 AM EDT Office Visit Pulmonolgy - [place] [address] [facility] [address] [place] [address] Yonatan Gray MD Lung nodule (Primary Dx); Pulmonary emphysema, unspecified emphysema type ([facility] V24, [facility] V28); Intermittent claudication ([facility] V24); Morbid obesity due to excess calories ([facility] V24, [facility] V28) 04/26/2025 9:00 AM EDT Office Visit [facility] Hematology Oncology [address] [place] [address] Amy Triana MD Prostate cancer ([facility] V24, [facility] V28) (Primary Dx); Elevated PSA; Anxiety; Acute bilateral low back pain without sciatica; Lung nodule; Other cirrhosis of liver ([facility] V24, [facility] V28) from Last 3 Months Immunizations Name Administration Dates Next Due Pfizer SARS-CoV-2 COVID-19, mRNA, LNP-S, preservative free 08/29/2021 Surgical History Surgery Date Site/Laterality Comments CARDIAC SURGERY PROCEDURE: HISTORICAL HEART SURGERY(ASD,VSD,VALVES) OTHER SURGICAL HISTORY PROCEDURE: NM ABLATION ARRHYTHMOGENIC FOCI/PATHWAY W/BYPASS OTHER SURGICAL HISTORY PROCEDURE: PROSTATE BIOPSY, ANY MTHD OTHER SURGICAL HISTORY PROCEDURE:insertion of cardiac stent COLONOSCOPY PROCEDURE:COLONOSCOPY OTHER SURGICAL HISTORY PROCEDURE:cataracts CORONARY ARTERY BYPASS GRAFT PROCEDURE:CORONARY ARTERY BYPASS GRAFT CORONARY STENT PLACEMENT PROCEDURE:CORONARY STENT PLACEMENT Medical History Medical History Date Comments History of cigarette smoking 10/26/2021 DX: History of cigarette smoking Prostate cancer ([facility] V24, [facility] V28) 2009 DX:Prostate cancer (HCC) Prostate cancer ([facility] V24, [facility] V28) DX:Prostate cancer (HCC) Hypertension DX:Hypertension High cholesterol DX:High cholest david Heart attack ([facility] V24, [facility] V28) DX:Heart attack (HCC) Aortic stenosis DX:Aortic [...] 9:45 AM EDT Office Visit Pulmonolgy - [place] [address] [facility] [address] [place] [phone] Yonatan Gray MD [address] [facility] [address] [place] [address] 12/07/2025 8:00 AM EST Ancillary Procedure [facility] - [facility] [address] [facility] [address] [place] [phone] 01/26/2026 9:00 AM EST Office Visit [facility] Hematology Oncology [address] [place] [phone] Nemesio-Amy Carlton MD [address] [place] [phone] Health Maintenance Due Date Last Done Comments [...] type, unspecified whether angina present, unspecified whether united [place]ow[place] or transplanted heart CT LUNG SCREENING LOW [...] GEMUSE QTc 472 ms GEMUSE P Wave Melbeta 46 degrees GEMUSE R Melbeta -42 degrees GEMUSE T Melbeta 20 degrees GEMUSE ECG Interpretation Sinus rhythm with 1st degree A-V block Left axis deviation Right bundle branch block Voltage criteria for left ventricular hypertrophy Abnormal ECG When compared with ECG of 18-SEP-2012 13:32, NM interval has increased Vent. rate has decreased [...] AM EDT Narrative 03/22/2021 10:08 AM EDT [facility] Diagnostic Imaging Department [address] [place] [address] Patient: SABAS LIGHT./Age/Sex: 1945 - 75 - M Unit#: [id number] Location/Status: SPDICATLS/REG CLI Mnemonic/Ordering Site: [facility] Ordering Physician: JHONNY WEINBERG MD [...] 1008 Procedure Note Yodit Goff, - 11/13/2022 [facility] Diagnostic Imaging Department [address] [place] [address] Patient: SABAS LIGHT./Age/Sex: 1945 - 75 - M Unit#: [id number] Location/Status: SPDICATLS/REG CLI Mnemonic/Ordering Site: [facility] Ordering Physician: JHONNY WEINBERG MD CT Lung Screening Low Dose - 03/22/21 - 0910 HISTORY: Former smoker (8 years), 52 pack year total. COMMENTS: Noncontrast Chest CT examination includes axial imaging from the lungapices through the hemidiaphragms supplemented with coronal and sagittalreformatted images utilizing low-dose screening technique ([employer], 170.99 DLP (mGy-cm),CT utilizing dose reduction technique [...]
--- NOTE | 2025-07-02 13:35 | A.OFFVIS_ITS ---
Intake Visit Reasons: 4m/PSA Intake Note: Patient is present for 3M/LABS Urology Medication:FINASTERIDE Antibiotic Allergy:NONE Blood Thinner:asprin Vacuum Extractor Operator Required: No Accompanied by: Self / Same As Patient Allergies typhoid vaccine Allergy (Unknown, Verified 07/02/25 13:42) Unknown HPI Comments Details: Sabas is a very pleasant male. He is a patient of Dr. Small. Here for the following urologic conditions - prostate cancer - biochemical recurrence - radiation cystitis Office follow-up PSA nondetectable, testosterone pending Four month follow-up Does have hot flashes but not interested in treatment PSA 03/19 <0.1 PSA during GnRH 05/18 0.9, 09/17 0.2, 12/19 <0.1, T 7 Final GnRH GnRH 11/08/23, 06/17, 12/19 PSA 05/10 2.3, 11/09 1.4, 05/11 1.0, 02/12 <0.1, 08/15 <0.1, 03/16 <0.1, 09/15 0.2, 04/16 0.7, 10/17 6.0 Prostate cancer: Favorable intermediate. Initial treatment radiation with short-term hormones 2014, Intermittent GnRH 12/17,06/17, 12/19 07/17 PET-CT - mild enhancement of right prostate apical apex Doing well. Good control urination. No leakage. Minimal urge. - Weak erections. Prostate cancer was diagnosed 10/2014. Diagnosis was reached by needle biopsy, for elevated PSA, PSA at diagnosis 7.7. The [place] grade is 3+4 = 7. TNM Classification of Malignant Tumours (TNM) T1c. The D'Renu (NCCN) risk category is Intermediate Risk (PSA 10-20, Gl 7, T2). Initial therapy included Primary treatment, External beam radiation with short term hormonal ablation - Dr Sanchez at [facility] Associated conditions erectile dysfunction Yes Erectile ALICJA Score 16 PFSH Medical History Gout HTN (hypertension) Hyperlipidemia GERD (gastroesophageal reflux disease) Coronary artery disease Surgical History History of coronary artery stent placement Family History Prostate cancer Mother Diabetes Cancer CVD (cardiovascular disease) Review of Systems Const Denies chills and Denies fever(s) Card Reports no additional complaints and Denies syncope Resp Denies cough GI Denies abdominal pain and Denies heartburn Reports as per HPI and Denies change in libido Neuro Denies syncope Psych Denies change in libido Endo Denies change in libido Physical Exam Const General: cooperative, healthy appearing, comfortable and no acute distress Orientation/consciousness: patient oriented x3 HEENT Face and sinus: Yes normal facial exam Mouth: moist mucous membranes Neck Neck: Yes normal visual inspection, Yes full ROM and Yes trachea midline Chest Chest palpation & inspection: normal inspection of the chest Resp Effort & Inspection: normal respiratory effort, able to speak in complete sentences and no respiratory distress GI Inspection: Yes normal to inspection Back/Spine/Pelvis Cervical Spine: normal cervical lordosis Thoracic/Lumbar Spine: thoracic and lumbar spine normal to inspection Skin General skin exam: no rashes or lesions noted Neuro General: patient oriented x3, gait normal, tone normal and moves all extremities Extrem General: Yes normal to inspection and Yes capillary refill normal Assessment & Plan Assessment & Plan (1) Prostate cancer: Comment: Favorable intermediate external beam radiation 2014 Code(s): C61 - Malignant neoplasm of prostate Category: Medical (2) Rising PSA following treatment for malignant neoplasm of prostate: Code(s): R97.21 - Rising PSA following treatment for malignant neoplasm of prostate Category: Medical Plan Four month follow-up lab work Orders: Orders Testosterone, Total 4 Months R97.21 - Rising PSA following treatment for malignant neoplasm of prostate Prostate Specific Antigen 4 Months R97.21 - Rising PSA following treatment for malignant neoplasm of prostate Patient Instructions: This note is constructed using voice recognition software. While every effort has been made to ensure accuracy motor scooter mechanic errors may have been included. Imaging studies, laboratory and physical exam results were discussed and reviewed in detail. No major barriers to patient understanding were identified. An opportunity to ask questions regarding the treatment plan was provided. All questions were answered. The patient expressed understanding and agreement with the above treatment plan. The patient is aware they should contact our office by phone for worsening of their current condition or the appearance of new urologic symptoms. Compliance is encouraged with any medications and followup testing that is ordered. It is a privilege to participate in the urologic care of your patient. If you have any questions or concerns regarding treatment for the above conditions, or other urologic issues, please do not hesitate to contact me. The office telephone contact is [phone]. Sincerely, Dr Demetrius Thomas MD, [facility] - Urology Compassionate Specialist Care for the Genitourinary System Coding Level of Care Code Est Pt Level 3 (91493) Complex EM visit Add On G2211 Diagnoses Prostate cancer C61 Rising PSA following treatment for malignant neoplasm of prostate R97.21
== END 2025-07-02 14:14 | disposition home or self-care (01) ==
LOC: HO.HUSH 13:13
PROVIDERS: PCP Family Medicine; Visit Provider Urology
DX: C61 Malignant neoplasm of prostate (principal); R97.21 Rising PSA following treatment for malignant neoplasm of prostate
CPT/HCPCS: 99213; G2211

== ENCOUNTER → 2025-07-02 13:13 | Outpatient (BNVA) | payer MEDICARE, SELFPAY | PROVIDERS: PCP Family Medicine; Visit Provider Urology | DX: C61 Malignant neoplasm of prostate (principal); R97.21 Rising PSA following treatment for malignant neoplasm of prostate | CPT/HCPCS: 99212 ==

== ENCOUNTER 2025-10-11 09:07 | Outpatient (REF) | payer MEDICARE, SELFPAY ==
[2025-10-11 11:35] LABS: Prostate Specific Antigen < 0.10 ng/mL (<0.05-4.0)
== END 2025-10-11 09:08 | disposition home or self-care (01) ==
LOC: HO.10HDL 09:07
PROVIDERS: Visit Provider Urology
DX: Z12.5 Encounter for screening for malignant neoplasm of prostate (principal); R97.21 Rising PSA following treatment for malignant neoplasm of prostate
CPT/HCPCS: 36415; 84153; 84403

== ENCOUNTER 2025-11-02 11:01 | Outpatient (AMB) | payer MEDICARE, SELFPAY ==
--- NOTE | 2025-11-02 11:02 | A.OFFVIS_ITS ---
Intake Visit Reasons: 4m/labs SET NO UA Intake Note: Patient is present for 4M TELEHEALTH Urology Medication:FINASTERIDE Antibiotic Allergy:NONE Blood Thinner:asprin Labs done 10/11/25 Total Testosterone 5L, PSA <0.10 Banking Specialist Required: No Accompanied by: Self / Same As Patient Allergies typhoid vaccine Allergy (Unknown, Verified 07/02/25 13:42) Unknown HPI Comments Details: Sabas is a very pleasant male. He is a patient of Dr. Small. Here for the following urologic conditions - prostate cancer - biochemical recurrence - radiation cystitis Telemedicine Evaluation 15 min Consultation [facility] Stephan Video PSA remains undetectable. Hot flashes slowly resolving Continue surveillance PSA 03/19 <0.1, 10/19 <0.1 T 5 PSA during GnRH 05/18 0.9, 09/17 0.2, 12/19 <0.1, T 7 Final GnRH GnRH 11/08/23, 06/17, 12/19 PSA 05/10 2.3, 11/09 1.4, 05/11 1.0, 02/12 <0.1, 08/15 <0.1, 03/16 <0.1, 09/15 0.2, 04/16 0.7, 10/17 6.0 Prostate cancer: Favorable intermediate. Initial treatment radiation with short-term hormones 2014, Intermittent GnRH 12/17,06/17, 12/19 07/17 PET-CT - mild enhancement of right prostate apical apex Doing well. Good control urination. No leakage. Minimal urge. - Weak erections. Prostate cancer was diagnosed 10/2014. Diagnosis was reached by needle biopsy, for elevated PSA, PSA at diagnosis 7.7. The [place] grade is 3+4 = 7. TNM Classification of Malignant Tumours (TNM) T1c. The D'Renu (NCCN) risk category is Intermediate Risk (PSA 10-20, Gl 7, T 2). Initial therapy included Primary treatment, External beam radiation with short term hormonal ablation - Dr Sanchez at [facility] Associated conditions erectile dysfunction Yes Erectile ALICJA Score 16 PFSH Medical History Gout HTN (hypertension) Hyperlipidemia GERD (gastroesophageal reflux disease) Coronary artery disease Surgical History History of coronary artery stent placement Family History Father Diabetes CVD (cardiovascular disease) Prostate cancer Mother Diabetes Cancer CVD (cardiovascular disease) Review of Systems Const All systems reviewed & are unremarkable except as noted in HPI and below Reports no additional complaints Resp Reports no additional complaints GI Reports no additional complaints Reports as per HPI Musc Reports no additional complaints Physical Exam Telemedicine evaluation Appropriate responses Regular breathing rate and rhythm HEENT Head: Yes normal to inspection Ears: hearing grossly normal bilaterally Eyes General: appearance normal, both eyes and all related structures Neck Neck: Yes normal visual inspection Chest Chest palpation & inspection: normal inspection of the chest Resp Effort & Inspection: normal respiratory effort and able to speak in complete sentences Telehealth Telehealth Telehealth Platform: Azullo Location of provider rendering services: practice address Location of patient: address on file Patient Identification confirmed using: Name, : Yes Telehealth method: voice only Patient verbally consented to treatment: Yes Patient verbally consented to billing insurance company: Yes Patient informed of any privacy concerns related to visit: Yes Assessment & Plan Assessment & Plan (1) Prostate cancer: Comment: Favorable intermediate external beam radiation 2014 Code(s): C61 - Malignant neoplasm of prostate Category: Medical (2) Rising PSA following treatment for malignant neoplasm of prostate: Code(s): R97.21 - Rising PSA following treatment for malignant neoplasm of prostate Category: Medical Plan Six-month follow-up repeat lab work Orders: Orders Testosterone, Total 6 Months R97.21 - Rising PSA following treatment for malignant neoplasm of prostate Prostate Specific Antigen 6 Months R97.21 - Rising PSA following treatment for malignant neoplasm of prostate Patient Instructions: This note is constructed using voice recognition software. While every effort has been made to ensure accuracy human resources technician errors may have been included. Imaging studies, laboratory and physical exam results were discussed and reviewed in detail. No major barriers to patient understanding were identified. An opportunity to ask questions regarding the treatment plan was provided. All questions were answered. The patient expressed understanding and agreement with the above treatment plan. The patient is aware they should contact our office by phone for worsening of their current condition or the appearance of new urologic symptoms. Compliance is encouraged with any medications and followup testing that is ordered. It is a privilege to participate in the urologic care of your patient. If you have any questions or concerns regarding treatment for the above conditions, or other urologic issues, please do not hesitate to contact me. The office telephone contact is [phone]. Sincerely, Dr Demetrius Thomas MD, [facility] - Urology Compassionate Specialist Care for the Genitourinary System Coding Level of Care Code Tele Est Pt Level 3 (25935) Complex visit Add On G2211 Diagnoses Prostate cancer C61 Rising PSA following treatment for malignant neoplasm of prostate R97.21
== END 2025-11-02 12:08 | disposition home or self-care (01) ==
LOC: HO.HUSH 11:01
PROVIDERS: PCP Internal Medicine; Visit Provider Urology
DX: C61 Malignant neoplasm of prostate (principal); R97.21 Rising PSA following treatment for malignant neoplasm of prostate
CPT/HCPCS: 98013